=== PATIENT | female | born 1935 | race Caucasian/White ===

== ENCOUNTER 2016-09-20 22:17 | Emergency (ER) | payer MEDICARE, OTHER ==
[2016-09-20 22:29] VITALS: TEMP 97.4
[2016-09-20] MEDS ORDERED: SODIUM CHLORIDE 0.9% 1,000 ML IV STA ×2 (23:01)
[2016-09-20 23:22] LABS: Basophils % (A) 0 %; CH 32.9; Eosinophils # (A) 0.1 k/uL (0-0.7); Eosinophils % (A) 1 %; HCT 45.4 % (34.0-46.0); HDW 2.29; HGB 14.8 gm/dL (11.4-16.0); Luc # (Auto) 0.13; Luc % (Auto) 2; Lymphocytes # (A) 0.6 k/uL (1.0-4.8); Lymphocytes % (A) 9 %; MCH 31.7 pg (25.0-35.0); MCHC 32.6 g/dL (31.0-37.0); MCV 97.2 fL (80.0-100.0); Mean Platelet Volume 7.5; Monocytes # (A) 0.4 k/uL (0-1.0); Monocytes % (A) 6 %; Neutrophils # (A) 5.3 k/uL (1.3-7.7); Neutrophils % (A) 82 %; RBC 4.67 m/uL (3.80-5.40); RDW 13.5 % (11.5-15.5); WBC 6.5 k/uL (3.8-10.6)
[2016-09-20 23:38] LABS: ALT 47 U/L (9-52); AST 66 U/L (14-36); Alkaline Phosphatase 87 U/L (38-126); Anion Gap 13 mmol/L; Blood Urea Nitrogen 18 mg/dL (7-17); Calcium 9.2 mg/dL (8.4-10.2); Carbon Dioxide 25 mmol/L (22-30); Chloride 101 mmol/L (98-107); Glucose 137 mg/dL (74-99); Magnesium 1.7 mg/dL (1.6-2.3); Non-African American GFR(MDRD) >60 (>60 ml/min/1.73 sqM); Potassium 4.2 mmol/L (3.5-5.1); Sodium 139 mmol/L (137-145); Total Bilirubin 0.8 mg/dL (0.2-1.3); Total Protein 7.7 g/dL (6.3-8.2)
--- NOTE | 2016-09-20 23:44 | ED ---
Fall HPI - General Chief Complaint: Fall Stated Complaint: fall Time Seen by Provider: 09/20/16 22:58 Source: patient, family, RN notes reviewed Mode of arrival: ambulatory - History of Present Illness Initial Comments: This is a 81-year-old female was brought in for evaluation of fall. She apparently fell 26 and 7 PM tonight could not get up she normally walks with a walker she felt very dizzy after getting up off a couch. She fell onto her back she denies any head or neck pain complains of upper lumbar lower thoracic pain. She denies any fevers chills nausea or sweats focal weakness at this time. No palpitations. MD Complaint: fall - Related Data Home Medications Medication Instructions Recorded Confirmed HYDROcodone/APAP 5-325MG [[place] 1 tab PO Q6HR PRN 09/20/16 09/20/16 5-325] Levothyroxine Sodium [Synthroid] 25 mcg PO DAILY 09/20/16 09/20/16 Allergies Allergy/AdvReac Type Severity Reaction Status Date / Time No Known Allergies Allergy Verified 09/20/16 22:28 Review of Systems ROS Statement: Those systems with pertinent positive or pertinent negative responses have been documented in the HPI. ROS Other: All systems not noted in ROS Statement are negative. Past Medical History Past Medical History: GERD/Reflux, Thyroid Disorder History of Any Multi-Drug Resistant Organisms: None Reported Past Surgical History: Orthopedic Surgery Past Psychological History: No Psychological Hx Reported Smoking Status: Never smoker Past Alcohol Use History: None Reported Past Drug Use History: None Reported General Exam - General Exam Comments Initial Comments: This is a well-developed well-nourished awake alert oriented 3 female she has a Joel Coma Scale of 15 Limitations: no limitations General appearance: alert, in no apparent distress Head exam: Present: atraumatic, normocephalic, normal inspection Eye exam: Present: normal appearance, PERRL, EOMI. Absent: scleral icterus, conjunctival injection, periorbital swelling ENT exam: Present: mucous membranes dry Neck exam: Present: normal inspection. Absent: tenderness, meningismus, lymphadenopathy Respiratory exam: Present: normal lung sounds bilaterally. Absent: respiratory distress, wheezes, rales, rhonchi, stridor Cardiovascular Exam: Present: regular rate, normal rhythm, normal heart sounds. Absent: systolic murmur, diastolic murmur, rubs, gallop, clicks GI/Abdominal exam: Present: soft, normal bowel sounds. Absent: distended, tenderness, guarding, rebound, rigid Extremities exam: Present: normal inspection, full ROM, normal capillary refill. Absent: tenderness, pedal edema, joint swelling, calf tenderness Back exam: Present: normal inspection, tenderness, paraspinal tenderness. Absent: CVA tenderness (R), CVA tenderness (L), vertebral tenderness Neurological exam: Present: alert, oriented X3, CN II-XII intact Psychiatric exam: Present: normal affect, normal mood Skin exam: Present: warm, dry, intact, normal color. Absent: rash Course Vital Signs 09/20/16 22:23 Temperature 97.4 F L Pulse Rate 107 H Respiratory 20 Rate Blood Pressure 121/70 O2 Sat by Pulse 96 Oximetry - Reevaluation(s) Reevaluation #1: 09/21/16 00:38 Patient was feeling better after IV hydration. Medical Decision Making - Medical Decision Making The patient and much improved this time and would like to go home. She will be discharged she is a follow-up with her doctor return when necessary I did recommend she increase oral fluids. - Lab Data Result diagrams: 09/20/16 22:45 09/20/16 22:45 Lab Results 09/20/16 09/20/16 09/20/16 Range/Units 22:45 22:45 22:45 WBC 6.5 (3.8-10.6) k/uL RBC 4.67 (3.80-5.40) m/uL Hgb 14.8 (11.4-16.0) gm/dL Hct 45.4 (34.0-46.0) % MCV 97.2 (80.0-100.0) fL MCH 31.7 (25.0-35.0) pg MCHC 32.6 (31.0-37.0) g/dL RDW 13.5 (11.5-15.5) % Plt Count 186 (150-450) k/uL Neutrophils % 82 % Lymphocytes % 9 % Monocytes % 6 % Eosinophils % 1 % Basophils % 0 % Neutrophils # 5.3 (1.3-7.7) k/uL Lymphocytes # 0.6 L (1.0-4.8) k/uL Monocytes # 0.4 (0-1.0) k/uL Eosinophils # 0.1 (0-0.7) k/uL Basophils # 0.0 (0-0.2) k/uL Sodium 139 (137-145) mmol/L Potassium 4.2 (3.5-5.1) mmol/L Chloride 101 (98-107) mmol/L Carbon Dioxide 25 (22-30) mmol/L Anion Gap 13 mmol/L BUN 18 H (7-17) mg/dL Creatinine 0.64 (0.52-1.04) mg/dL Est GFR (MDRD) Af Amer >60 (>60 ml/min/1.73 sqM) Est GFR (MDRD) Non-Af >60 (>60 ml/min/1.73 sqM) Glucose 137 H (74-99) mg/dL Calcium 9.2 (8.4-10.2) mg/dL Magnesium 1.7 (1.6-2.3) mg/dL Total Bilirubin 0.8 (0.2-1.3) mg/dL AST 66 H (14-36) U/L ALT 47 (9-52) U/L Alkaline Phosphatase 87 (38-126) U/L Total Creatine Kinase 69 (30-135) U/L CK-MB (CK-2) 0.5 (0.0-2.4) ng/mL CK-MB (CK-2) Rel Index 0.7 Troponin I <0.012 (0.000-0.034) ng/mL Total Protein 7.7 (6.3-8.2) g/dL Albumin 4.1 (3.5-5.0) g/dL Urine Color Urine Appearance (Clear) Urine pH (5.0-8.0) Ur Specific [place] (1.001-1.035) Urine Protein (Negative) Urine Glucose (UA) (Negative) Urine Ketones (Negative) Urine Blood (Negative) Urine Nitrate (Negative) Urine Bilirubin (Negative) Urine Urobilinogen (<2.0) mg/dL Ur Leukocyte Esterase (Negative) Urine RBC (0-5) /hpf Urine WBC (0-5) /hpf Ur Squamous Epith Cells (0-4) /hpf Urine Mucus (None) /hpf 09/20/16 Range/Units 23:43 WBC (3.8-10.6) k/uL RBC (3.80-5.40) m/uL Hgb (11.4-16.0) gm/dL Hct (34.0-46.0) % MCV (80.0-100.0) fL MCH (25.0-35.0) pg MCHC (31.0-37.0) g/dL RDW (11.5-15.5) % Plt Count (150-450) k/uL Neutrophils % % Lymphocytes % % Monocytes % % Eosinophils % % Basophils % % Neutrophils # (1.3-7.7) k/uL Lymphocytes # (1.0-4.8) k/uL Monocytes # (0-1.0) k/uL Eosinophils # (0-0.7) k/uL Basophils # (0-0.2) k/uL Sodium (137-145) mmol/L Potassium (3.5-5.1) mmol/L Chloride (98-107) mmol/L Carbon Dioxide (22-30) mmol/L Anion Gap mmol/L BUN (7-17) mg/dL Creatinine (0.52-1.04) mg/dL Est GFR (MDRD) Af Amer (>60 ml/min/1.73 sqM) Est GFR (MDRD) Non-Af (>60 ml/min/1.73 sqM) Glucose (74-99) mg/dL Calcium (8.4-10.2) mg/dL Magnesium (1.6-2.3) mg/dL Total Bilirubin (0.2-1.3) mg/dL AST (14-36) U/L ALT (9-52) U/L Alkaline Phosphatase (38-126) U/L Total Creatine Kinase (30-135) U/L CK-MB (CK-2) (0.0-2.4) ng/mL CK-MB (CK-2) Rel Index Troponin I (0.000-0.034) ng/mL Total Protein (6.3-8.2) g/dL Albumin (3.5-5.0) g/dL Urine Color Yellow Urine Appearance Clear (Clear) Urine pH 5.5 (5.0-8.0) Ur Specific [place] 1.009 (1.001-1.035) Urine Protein Negative (Negative) Urine Glucose (UA) Negative (Negative) Urine Ketones Negative (Negative) Urine Blood Negative (Negative) Urine Nitrate Negative (Negative) Urine Bilirubin Negative (Negative) Urine Urobilinogen <2.0 (<2.0) mg/dL Ur Leukocyte Esterase Large H (Negative) Urine RBC 4 (0-5) /hpf Urine WBC 27 H (0-5) /hpf Ur Squamous Epith Cells 1 (0-4) /hpf Urine Mucus Few H (None) /hpf - EKG Data -: EKG Interpreted by Me (Sinus rhythm with a rate of 97. 01 72 QRS duration 80 daily since QTC of 3) - Radiology Data Radiology results: report reviewed (I did review the x-ray and report no acute findings or is evidence of chronic interstitial changes.), image reviewed Disposition Clinical Impression: Fall, Dehydration, Weakness, Back pain Disposition: HOME SELF-CARE Condition: Good Instructions: Fall Prevention for Older Adults (ED), Dehydration (ED), Back Pain (ED)
[2016-09-20 23:53] LABS: Creatine Kinase 69 U/L (30-135)
[2016-09-21] MEDS ORDERED: ACETAMINOPHEN TAB 325 MG TAB PO STA (00:03)
[2016-09-21 00:05] LABS: Creatine Kinase MB 0.5 ng/mL (0.0-2.4); Troponin I <0.012 ng/mL (0.000-0.034)
--- NOTE | 2016-09-21 00:06 | XR ---
EXAM: XR Chest, 2 Views. CLINICAL HISTORY: Reason: cough TECHNIQUE: Frontal and lateral views of the chest. COMPARISON: 10/04/15. FINDINGS: Patient's rotated. Suspect cardiac and mediastinal silhouette stable allowing for differences in technique. No pneumothorax is seen. Prominent interstitial opacities. May represent chronic interstitial changes. Difficult to exclude some superimposed infiltrate. Correlate clinically. Calcified granulomas. IMPRESSION: Prominent interstitial opacities. May represent chronic interstitial changes. Difficult to exclude some superimposed infiltrate. Correlate clinically.
[2016-09-21 00:12] LABS: Appearance,Urine Clear (Clear); Bilirubin,Urine Negative (Negative); Glucose,Urine (UA) Negative (Negative); Ketones,Urine Negative (Negative); Leukocyte Esterase,Urine Large (Negative); Mucus,Urine Few /hpf; Nitrite,Urine Negative (Negative); PH, Urine 5.5 (5.0-8.0); Particle Count 3534; Protein,Urine Negative (Negative); RBC,Urine 4 /hpf (0-5); Specific Gravity,Urine 1.009 (1.001-1.035); Squamous Epithelial Cell,Urine 1 /hpf (0-4); UA Billing (MACRO vs. MICRO) MICRO; Urobilinogen,Urine <2.0 mg/dL (<2.0); WBC,Urine 27 /hpf (0-5)
[2016-09-21 01:33] VITALS: BP 143/72; PULSE 82; RESP 16
== END 2016-09-21 01:33 | disposition home or self-care (01) ==
LOC: SUPCPDRO 22:17 → EC 22:17
DX: E86.0 Dehydration (principal); M54.6 Pain in thoracic spine; M54.5 Low back pain; E07.9 Disorder of thyroid, unspecified; R91.8 Other nonspecific abnormal finding of lung field; Z79.52 Long term (current) use of systemic steroids; W19.XXXA Unspecified fall, initial encounter; Y92.009 Unspecified place in unspecified non-institutional (private) residence as the place of occurrence of the external cause
CPT/HCPCS: 36415; 71020; 80053; 81001; 82550; 82553; 83735; 84484; 85025; 93005; 96360; 99283

== ENCOUNTER 2017-03-12 20:19 | Emergency (ER) | payer MEDICARE, OTHER ==
[2017-03-12 20:26] VITALS: RESP 16; TEMP 97.9
[2017-03-12] MEDS ORDERED: methylPREDNISolone SOD SUCCI 125 MG/2 ML VIAL IV STA (21:30)
[2017-03-12] MEDS ORDERED: FAMOTIDINE 20 MG/2 ML VIAL IV STA (21:30)
[2017-03-12] MEDS ORDERED: IBUPROFEN 600 MG TAB PO STA (21:32)
--- NOTE | 2017-03-12 21:32 | ED ---
Allergic Reaction HPI - General Chief complaint: Allergic Reaction Stated complaint: Insect Bites Time Seen by Provider: 03/12/17 21:24 Source: patient, EMS Mode of arrival: EMS Limitations: no limitations - History of Present Illness Initial Comments: 81-year-old female patient presents to emergency department today for evaluation after being stung multiple times by bees while gardening. Patient states around 6 PM she was pulling some weeds when she was stung on both of her hands, her right leg, her chest, and her neck. Patient states that the areas are swollen and painful. She denies any throat swelling, shortness of breath, wheezing, tongue swelling, or lip swelling. States she did take some Benadryl at home. Patient states she was stung one time in the past and did have some facial swelling however the stings were to her face. Denies any headache, neck pain, dizziness, weakness, blurred vision, double vision, chest pain, abdominal pain, nausea, vomiting, difficulties with urination or bowel movements. - Related Data Home Medications Medication Instructions Recorded Confirmed Aspirin EC [Ecotrin Low Dose] 81 mg PO HS 03/12/17 03/12/17 Ibuprofen [Advil] 200 mg PO HS PRN 03/12/17 03/12/17 Levothyroxine Sodium [Synthroid] 50 mcg PO DAILY 03/12/17 03/12/17 Omeprazole 20 mg PO HS 03/12/17 03/12/17 diphenhydrAMINE [Benadryl] 50 mg PO HS PRN 03/12/17 03/12/17 Previous Rx's Medication Instructions Recorded predniSONE 50 mg PO DAILY #3 tab 03/12/17 Allergies Allergy/AdvReac Type Severity Reaction Status Date / Time No Known Allergies Allergy Verified 03/12/17 20:39 Review of Systems ROS Statement: Those systems with pertinent positive or pertinent negative responses have been documented in the HPI. ROS Other: All systems not noted in ROS Statement are negative. Past Medical History Past Medical History: GERD/Reflux, Thyroid Disorder History of Any Multi-Drug Resistant Organisms: None Reported Past Surgical History: Orthopedic Surgery Past Psychological History: No Psychological Hx Reported Smoking Status: Never smoker Past Alcohol Use History: None Reported Past Drug Use History: None Reported General Exam Limitations: no limitations General appearance: alert, in no apparent distress Head exam: Present: atraumatic, normocephalic, normal inspection Eye exam: Present: normal appearance, PERRL, EOMI. Absent: scleral icterus, conjunctival injection, periorbital swelling ENT exam: Present: normal exam, normal oropharynx, mucous membranes moist Neck exam: Present: normal inspection, full ROM, other (Small area of erythema and swelling to the left neck, insect sting). Absent: tenderness, meningismus, lymphadenopathy Respiratory exam: Present: normal lung sounds bilaterally. Absent: respiratory distress, wheezes, rales, rhonchi, stridor Cardiovascular Exam: Present: regular rate, normal rhythm, normal heart sounds. Absent: systolic murmur, diastolic murmur, rubs, gallop, clicks GI/Abdominal exam: Present: soft, normal bowel sounds. Absent: distended, tenderness, guarding, rebound, rigid Extremities exam: Present: full ROM, normal capillary refill, other (Dorsal aspect of the bilateral wrists are erythematous and swollen related to insect sting. Right lateral ankle exhibits small area of erythema and swelling related to insect sting.). Absent: normal inspection, tenderness, pedal edema, joint swelling, calf tenderness Back exam: Present: normal inspection Neurological exam: Present: alert, oriented X3, CN II-XII intact Psychiatric exam: Present: normal affect, normal mood Skin exam: Present: warm, dry, intact, normal color, other (Right chest has small area of erythema and swelling related to insect sting.). Absent: rash Course Vital Signs 03/12/17 20:21 Temperature 97.9 F Pulse Rate 78 Respiratory 16 Rate Blood Pressure 141/71 O2 Sat by Pulse 95 Oximetry Medical Decision Making - Medical Decision Making 81-year-old female patient presented to emergency permits after being stung multiple times by bees. This occurred around 1800 and patient did take Benadryl. Patient states that she is only having localized symptoms and denies any trouble breathing. Patient's physical exam did reveal even non-labored respirations, no wheezes. Patient will be given IV Solu-Medrol and Pepcid. Patient feels comfortable being discharged home. She will be given instructions to take Benadryl every 6 hours as needed for symptoms. Patient also given a prescription for prednisone should she continue to have symptoms tomorrow however told her this was optional and only if she needed to take it. Patient was instructed to follow-up with her primary care physician for recheck in 1-2 days. Patient struck her to return here immediately for any new, worsening, or concerning symptoms. Patient verbalizes understanding and agrees with this plan. Disposition Clinical Impression: Stings, insect Disposition: HOME SELF-CARE Condition: Good Instructions: Insect Bite or Sting (ED) Additional Instructions: Cool compresses to the sting sites. Continue taking Benadryl every 6 hours as needed. Take ibuprofen for pain control. Follow up with primary care physician for recheck in 1-2 days. Return immediately for any new, worsening, or concerning symptoms. Prescriptions: predniSONE 50 mg PO DAILY #3 tab Referrals: Bharath Seals MD [Primary Care Provider] - 1-2 days Time of Disposition: 21:31
[2017-03-12 21:47] VITALS: BP 102/67; PULSE 56
== END 2017-03-12 21:46 | disposition home or self-care (01) ==
LOC: EC 20:19
DX: T63.441A Toxic effect of venom of bees, accidental (unintentional), initial encounter (principal); K21.9 Gastro-esophageal reflux disease without esophagitis; E07.9 Disorder of thyroid, unspecified; Z79.82 Long term (current) use of aspirin; Z79.899 Other long term (current) drug therapy; Y93.H2 Activity, gardening and landscaping
CPT/HCPCS: 99283; 96374; 96375; J2930

== ENCOUNTER → 2017-04-14 | Outpatient (CLI) | payer MEDICARE, OTHER | END | disposition home or self-care (01) | LOC: CPPFTMAIN 10:18 | PROVIDERS: ATTEND Otolaryngology | DX: R05 Cough (principal); J44.9 Chronic obstructive pulmonary disease, unspecified | CPT/HCPCS: 94060; 94726; 94729 ==

== ENCOUNTER → 2019-06-23 | Outpatient (CLI) | payer MEDICARE, OTHER ==
[2019-06-23 11:21] LABS: HGB 13.9 gm/dL (11.4-16.0); MCH 33.2 pg (25.0-35.0); MCHC 33.9 g/dL (31.0-37.0); MCV 98.1 fL (80.0-100.0); Mean Platelet Volume 6.6; Platelet Count 195 k/uL (150-450); RBC 4.18 m/uL (3.80-5.40); RDW 12.7 % (11.5-15.5); WBC 7.2 k/uL (3.8-10.6)
[2019-06-23 11:34] LABS: Potassium 4.6 mmol/L (3.5-5.1)
== END | disposition home or self-care (01) ==
LOC: LABPAT 10:25
PROVIDERS: ATTEND Internal Medicine Interventional Cardiology
DX: Z01.812 Encounter for preprocedural laboratory examination (principal); I35.0 Nonrheumatic aortic (valve) stenosis; I20.9 Angina pectoris, unspecified
CPT/HCPCS: 36415; 80051; 82565; 84520; 85027

== ENCOUNTER → 2019-07-05 | Outpatient (CLI) | payer MEDICARE, OTHER ==
[2019-07-05 17:56] LABS: HCT 46.5 % (34.0-46.0); HGB 15.2 gm/dL (11.4-16.0); MCH 32.5 pg (25.0-35.0); MCHC 32.7 g/dL (31.0-37.0); MCV 99.5 fL (80.0-100.0); Mean Platelet Volume 7.7; Platelet Count 214 k/uL (150-450); RBC 4.68 m/uL (3.80-5.40); RDW 12.7 % (11.5-15.5); WBC 10.1 k/uL (3.8-10.6)
[2019-07-05 23:22] LABS: Anion Gap 11.3 mmol/L (4.00-12.00); BUN/Creat Ratio 31.25 Ratio (12.00-20.00); Calcium 9.7 mg/dL (8.7-10.3); Carbon Dioxide 24.7 mmol/L (21.6-31.8); Non-African American GFR(CKD) 68.2 (60.0-200.0); Potassium 3.9 mmol/L (3.5-5.5)
== END | disposition home or self-care (01) ==
LOC: LABWHC1 17:30
PROVIDERS: ATTEND Internal Medicine
DX: Z01.812 Encounter for preprocedural laboratory examination (principal); I25.119 Atherosclerotic heart disease of native coronary artery with unspecified angina pectoris
CPT/HCPCS: 36415; 80048; 85027

== ENCOUNTER 2019-07-14 06:16 | Day surgery (SDC) | payer MEDICARE, OTHER ==
[2019-07-08 14:48] VITALS: BMI 25.9
[2019-07-14] MEDS ORDERED: NITROGLYCERIN SL TABS 0.4 MG TAB SUBLINGUAL PRN ×2 (06:32→08:32)
[2019-07-14] MEDS ORDERED: ASPIRIN 325 MG TAB PO STA (06:32)
[2019-07-14] MEDS ORDERED: ALPRAZolam 0.25 MG TAB PO PRN (06:32)
[2019-07-14] MEDS ORDERED: ATORVASTATIN 80 MG TAB PO STA (06:32)
[2019-07-14] MEDS ORDERED: SODIUM CHLORIDE 0.9% 1,000 ML in EMPTY BAG 1 BAG IV ONE (06:32)
[2019-07-14] MEDS ORDERED: ALPRAZolam 0.5 MG TAB PO PRN (06:32)
[2019-07-14] MEDS ORDERED: MIDAZOLAM 2 MG/2 ML VIAL IV ONE (07:43)
[2019-07-14] MEDS ORDERED: LIDOCAINE 1% INJ 10MG/ML (20 ML MDV) SQ ONE (07:45)
[2019-07-14] MEDS ORDERED: BIVALIRUDIN 250 MG in SODIUM CHLORIDE 0.9% 39.5 ML IV ONE (07:53)
[2019-07-14] MEDS ORDERED: BIVALIRUDIN BOLUS 250 MG/50 ML IV ONE (07:53)
[2019-07-14] MEDS: NITROGLYCERIN 1000MCG/10ML SYRINGE INTRACORON ONE ×3 (08:06→08:14)
[2019-07-14] MEDS ORDERED: TICAGRELOR 90 MG TAB PO ONE (08:09)
[2019-07-14] MEDS ORDERED: IOPAMIDOL-370 100ML BTL INJ ONE (08:14)
[2019-07-14] MEDS ORDERED: IOPAMIDOL-370 50ML BTL INJ ONE (08:17)
[2019-07-14] MEDS ORDERED: HYDROmorphone 1 MG/ML 1 ML SYRINGE IVP ONE (08:20)
[2019-07-14] MEDS ORDERED: ATROPINE SULFATE 0.1 MG/ML 10ML SYRINGE IV PRN (08:32)
[2019-07-14] MEDS ORDERED: MAG HYDROX/AL HYDROX/SIMETH 30 ML CUP PO PRN (08:32)
[2019-07-14] MEDS ORDERED: RX INFO: IV CONTRAST WAS GIVEN 1 EACH MISC MISCELLANE PRN (08:32)
[2019-07-14] MEDS ORDERED: ZOLPIDEM 5 MG TAB PO PRN (08:32)
--- NOTE | 2019-07-14 09:00 | LTR ---
DATE OF SERVICE: 07/14/2019 RE: Neida Romero Dear Dr. Seals; Thank you for the opportunity to participate in the care of Mrs. Neida Romero. I am pleased to report to you that she had an excellent angiographic result. I dilated the mid LAD with excellent result. Her aortic stenosis is mild and she will be now on aspirin 81 mg daily, Brilinta 90 mg b.i.d., Lipitor 80 mg daily, Lopressor 25 mg daily. She will be seen by me in the office on July 22 and then I will turn her over to your care. Thank you for your referral. Please call for questions. With kindest regards. Sincerely yours, MD WHITNEY Early / CEFERINO: [id number] /
--- NOTE | 2019-07-14 09:00 | PTCA ---
PERCUTANEOUSTRANS CORORONARY ANGIOGRAPHY DATE OF SERVICE: 07/14/2019 PROCEDURE: PTCA and stenting of mid LAD lesion, a bifurcation vessel with a drug-eluting stent. PERFORMED BY: Dr. Franco Mtz. CLINICAL INFORMATION: Mrs. Neida Romero is an 83-year-old lady with a history of hypertension, mild aortic stenosis, significant symptoms of angina, who had a cardiac cath on June 30, which revealed a tight 80% mid LAD lesion immediately after diagonal branch almost at the bifurcation. She had a very long left main, small circumflex, and RCA which did not have significant disease. She was advised intervention, brought in for the procedure electively after due discussion regarding risks, benefits, and options. PROCEDURE NOTE: Under local anesthesia and strict aseptic precautions, a 6-Bolivian introducer was placed in the right femoral artery. I used a JL3.5 guide catheter of 6-Bolivian caliber to cannulate the left coronary artery. A run-through wire was kept in the distal LAD and a Whisper wire was kept in the major diagonal branch. I pre-dilated the lesion with an 8 mm 2.5 NC Trek balloon at 12 atmospheres. I then deployed a 12 mm long 2.75 caliber Xience stent at 13 atmospheres. Patient did not have significant chest pain but had mild ST a segment elevation in the anterior leads. Excellent angiographic result was achieved. Diagonal branch was preserved. The wire in the diagonal and the LAD were taken out and final angiogram revealed excellent result without complication. The sheath was then taken out and a Perclose device used to secure hemostasis. Patient tolerated procedure well without complications. She received Angiomax bolus and infusion as per protocol and also received 180 mg of Brilinta. She was sent to the room in stable condition with the understanding she will be discharged tomorrow if she remains stable. Moderate conscious sedation time was 42 minutes. Patient was administered Versed and oxygen saturation, hemodynamics and EKG were monitored closely. MMODL / IJN: [id number] /
[2019-07-14] MEDS: SODIUM CHLORIDE 0.9% 1,000 ML IV SCH (10:48)
[2019-07-14] MEDS: LEVOTHYROXINE 50 MCG TAB PO SCH (10:49)
[2019-07-14] MEDS: METOPROLOL TARTRATE 25 MG TAB PO SCH (10:49)
[2019-07-14] MEDS ORDERED: ASPIRIN 81 MG PO SCH (21:00)
[2019-07-14] MEDS ORDERED: ATORVASTATIN 80 MG TAB PO SCH (21:00)
[2019-07-15 04:32] VITALS: TEMP 97.6
[2019-07-15] MEDS: SODIUM CHLORIDE 0.9% 1,000 ML IV SCH (04:42)
[2019-07-15] MEDS: LEVOTHYROXINE 50 MCG TAB PO SCH (06:33)
[2019-07-15 07:12] LABS: Basophils # (A) 0.1 k/uL (0-0.2); Basophils % (A) 2 %; Eosinophils # (A) 0.4 k/uL (0-0.7); Eosinophils % (A) 6 %; HCT 43.1 % (34.0-46.0); Lymphocytes # (A) 1.3 k/uL (1.0-4.8); Lymphocytes % (A) 22 %; MCHC 32.6 g/dL (31.0-37.0); MCV 98.4 fL (80.0-100.0); Mean Platelet Volume 7.7; Monocytes # (A) 0.5 k/uL (0-1.0); Monocytes % (A) 8 %; Neutrophils # (A) 3.7 k/uL (1.3-7.7); Neutrophils % (A) 60 %; Platelet Count 140 k/uL (150-450); RBC 4.37 m/uL (3.80-5.40); WBC 6.1 k/uL (3.8-10.6)
[2019-07-15 07:22] LABS: African American GFR (CKD) >90 (>60 ml/min/1.73 sqM); Anion Gap 6 mmol/L; Blood Urea Nitrogen 12 mg/dL (7-17); Calcium 8.7 mg/dL (8.4-10.2); Carbon Dioxide 26 mmol/L (22-30); Chloride 105 mmol/L (98-107); Glucose 83 mg/dL (74-99); Non-African American GFR(CKD) 86 (>60 ml/min/1.73 sqM); Potassium 4.3 mmol/L (3.5-5.1); Sodium 137 mmol/L (137-145)
--- NOTE | 2019-07-15 07:51 | DS ---
DISCHARGE SUMMARY DATE OF ADMISSION: 07/14/2019 DATE OF DISCHARGE: 07/15/2019. DIAGNOSIS: Unstable angina, mild to moderate aortic stenosis. PROCEDURES PERFORMED: PTCA and stenting of a bifurcation mid LAD lesion with excellent angiographic result with a drug-eluting stent. Mrs. Romero was brought in electively for PCI of LAD. This procedure was performed yesterday uneventfully with a 12 mm long 2.75 caliber drug-eluting stent with excellent result. Postprocedure course was uneventful. Right groin is clean and dry. Vitals are stable, blood pressure is about 100/60, pulse rate is about 70 per minute. There is no JVD, ejection systolic murmur is audible. Lungs are clear. Abdomen and lower extremity exam is unchanged. Right groin is clean and dry. EKG revealed sinus mechanism, no acute changes. Labs were reviewed and are normal. Discharge instructions regarding activity, diet, medications, and appointments were given. She will be discharged today and I will see her in the office on July 22, 2019. Dual antiplatelet therapy, statins and beta blockers were given. Prescriptions were given. MMODL / IJN: [id number] /
[2019-07-15] MEDS ORDERED: ATORVASTATIN 80 MG TAB PO SCH (08:30)
[2019-07-15] MEDS ORDERED: ASPIRIN 81 MG PO SCH (08:30)
[2019-07-15] MEDS: METOPROLOL TARTRATE 25 MG TAB PO SCH (08:36)
[2019-07-15] MEDS ORDERED: TICAGRELOR 90 MG TAB PO SCH (09:00)
[2019-07-15 09:06] VITALS: BP 91/57; PULSE 79; RESP 20
== END 2019-07-15 10:10 | disposition home or self-care (01) ==
LOC: CATHCVL 06:16 → 3SCARD 08:20 → CATHCVL 07-15 10:10
PROVIDERS: ATTEND Internal Medicine Interventional Cardiology
DX: I25.110 Atherosclerotic heart disease of native coronary artery with unstable angina pectoris (principal); I35.0 Nonrheumatic aortic (valve) stenosis
CPT/HCPCS: 80048; 85025; C9600; C1769 ×4; C1887; C1725; C1894; C1760; C1874; J2250; J2001; J1170; J0583; Q9967 ×2

== ENCOUNTER 2019-07-16 09:21 | Inpatient (IN) | payer MEDICARE, OTHER ==
[2019-07-16] MEDS ORDERED: KETOROLAC 60 MG/2 ML VIAL IVP STA (10:16)
[2019-07-16] MEDS ORDERED: HYDROmorphone 0.5 MG/0.5 ML SYRINGE IVP STA (10:16)
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
[2019-07-16 11:02] LABS: ALT 45 U/L (4-34); AST 59 U/L (14-36); African American GFR (CKD) >90 (>60 ml/min/1.73 sqM); Albumin 3.6 g/dL (3.5-5.0); Alkaline Phosphatase 62 U/L (38-126); Anion Gap 11 mmol/L; Blood Urea Nitrogen 12 mg/dL (7-17); Calcium 9.2 mg/dL (8.4-10.2); Carbon Dioxide 20 mmol/L (22-30); Chloride 103 mmol/L (98-107); Glucose 89 mg/dL (74-99); Non-African American GFR(CKD) 82 (>60 ml/min/1.73 sqM); Potassium 4.8 mmol/L (3.5-5.1); Sodium 134 mmol/L (137-145); Total Bilirubin 2.1 mg/dL (0.2-1.3); Total Protein 6.6 g/dL (6.3-8.2)
--- NOTE | 2019-07-16 11:09 | XR ---
EXAMINATION TYPE: XR knee complete LT DATE OF EXAM: 07/16/2019 CLINICAL HISTORY: Left knee pain. TECHNIQUE: Three views of the left knee are obtained. COMPARISON: Left knee x-ray August 12, 2013 FINDINGS: There is no acute fracture/dislocation evident in left knee. Persistent moderate to severe narrowing patellofemoral compartment with mild spurring. Persistent moderate narrowing medial tibiof emoral compartment with mild spurring. No significant change from prior. Demineralization is present. Some increased density suprapatellar bursa suggests small to moderate size joint effusion may be new from prior study. Posterior vascular calcification is now identified. IMPRESSION: As above.
[2019-07-16 11:38] LABS: Basophils % (A) 0 %; Eosinophils # (A) 0.1 k/uL (0-0.7); Eosinophils % (A) 1 %; HCT 39.7 % (34.0-46.0); HGB 13.8 gm/dL (11.4-16.0); Lymphocytes # (A) 1.2 k/uL (1.0-4.8); Lymphocytes % (A) 11 %; MCHC 34.6 g/dL (31.0-37.0); MCV 95.2 fL (80.0-100.0); Mean Platelet Volume 7.9; Monocytes # (A) 0.9 k/uL (0-1.0); Monocytes % (A) 8 %; Neutrophils # (A) 8.3 k/uL (1.3-7.7); Neutrophils % (A) 77 %; Platelet Count 138 k/uL (150-450); RBC 4.17 m/uL (3.80-5.40); RDW 12.9 % (11.5-15.5); WBC 10.7 k/uL (3.8-10.6)
[2019-07-16] MEDS ORDERED: SODIUM CHLORIDE 0.9% 1,000 ML IV ONE (14:01)
[2019-07-16] MEDS ORDERED: NITROGLYCERIN SL TABS 0.4 MG TAB SUBLINGUAL PRN (15:11)
[2019-07-16] MEDS ORDERED: ACETAMINOPHEN TAB 500 MG TAB PO PRN (15:26)
[2019-07-16 17:25] LABS: C Reactive Protein 49.7 mg/L (<10.0)
[2019-07-16] MEDS: KETOROLAC 30 MG/ML 1 ML VIAL IVP SCH ×2 (17:36→23:31)
[2019-07-16] MEDS: LIDOCAINE 4% CREAM 5 GM TUBE TOPICAL SCH ×2 (17:37→21:58)
[2019-07-16] MEDS: ATORVASTATIN 80 MG TAB PO SCH (21:55)
[2019-07-16] MEDS: TICAGRELOR 90 MG TAB PO SCH (21:56)
[2019-07-16] MEDS: ASPIRIN 81 MG PO SCH (21:56)
[2019-07-17] MEDS: LEVOTHYROXINE 50 MCG TAB PO SCH (05:50)
[2019-07-17] MEDS: KETOROLAC 30 MG/ML 1 ML VIAL IVP SCH ×2 (05:52→12:24)
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
[2019-07-17] MEDS: TICAGRELOR 90 MG TAB PO SCH ×2 (09:40→23:43)
[2019-07-17] MEDS: METOPROLOL TARTRATE 25 MG TAB PO SCH (09:40)
[2019-07-17] MEDS: LIDOCAINE 4% CREAM 5 GM TUBE TOPICAL SCH ×3 (09:40→23:47)
--- NOTE | 2019-07-17 11:21 | P.PN ---
Subjective Progress Note Date: 07/17/19 The patient is a pleasant 83-year-old female with a past medical history of CAD that underwent cardiac catheterization with stent placement on 07/15/19 that presented to [facility] ED on 07/16/19 with complaints of left knee pain. The pain began suddenly and the patient denies any injury or inciting event. Patient noticed worsening pain in the left knee, that she is unable to bear weight. Patient notes that the left knee is actually her "good knee", she sustained injury to the right knee as a child. She spaces seen Dr. Mccollum in the office and received injections into the left knee, most recent was February of this year. Patient was admitted due to her inability to bear weight. She is a dmitted under the care of internal medicine with consults placed to orthopedics for evaluation of her left knee pain. At the time of my exam, the patient states her pain in the left knee has improved compared to yesterday. She has been up with assistance to the bathroom, with minimal pain in the left knee. She states the pain in her knee is mild, and is exacerbated with weightbearing. She localizes the pain to the medial knee. She denies erythema, warmth of the knee. She denies fevers, chi lls, feelings of generalized malaise. She overall feels well today. Vital signs stable. Objective - Vital Signs Vital signs: Vital Signs Temp 98.5 F 07/17/19 07:00 Pulse 76 07/17/19 07:00 Resp 16 07/17/19 07:00 BP 102/57 07/17/19 07:00 Pulse Ox 93 L 07/17/19 07:00 Intake & Output 07/16/19 07/17/19 07/17/19 18:59 06:59 18:59 Intake Total 780 Output Total 500 Balance 280 Weight 79.379 kg Intake: Intake, IV Titration 300 Amount Sodium Chloride 0.9% 1, 300 000 ml @ 75 mls/hr IV . [id number] ONE Rx#:[id number] Oral 480 Output: Urine 500 Other: Voiding Method Bedside Commode Bedside Commode # Voids 1 1 - Exam On examination, the patient is sitting up in the chair in no apparent distress. She is alert and oriented 3. On inspection of the left knee, there is a moderate effusion with no overlying erythema, warmth, or skin discoloration. There is no tenderness to palpation of the medial joint line, anterior knee, lateral joint line. There is no pain with active or passive range of motion of the knee. No pain with passive range of motion of the hip or ankle. There is no pain with valgus or varus stress of the knee. No pain with logrolling. Patient is able to perform a straight leg raise without issue or pain. Motor and sensory function are intact of the left lower extremity. Patient has good range of motion of the ankle. Left lower extremity is warm and well-perfused. Calf is soft and nontender to palpation. - Labs CBC & Chem 7: 07/16/19 11:16 07/16/19 10:40 Labs: Abnormal Lab Results - Last 24 Hours (Table) 07/16/19 07/16/19 07/16/19 Range/Units 11:16 16:44 16:44 WBC 10.7 H (3.8-10.6) k/uL Plt Count 138 L (150-450) k/uL Neutrophils # 8.3 H (1.3-7.7) k/uL ESR 28 H (0-20) mm/hr Creatine Kinase 24 L (30-135) U/L C-Reactive Protein 49.7 H (<10.0) mg/L Assessment and Plan Assessment: Left knee pain with effusion, with underlying osteoarthritis. Plan: - Clinical and x-ray findings were discussed with the patient. We discussed her clinical exam continues to show no sign of infection. Her exam remains consistent with an acute inflammatory response, or a possible spontaneous hemarthrosis. Recommended we continue with symptomatic treatment with ice and/or warm compresses, pain management, and activity as tolerated. Recommended physical therapy and occupational therapy for gait and balance training, and to increase mobilization. - We will consider a left knee aspiration if she is unable to progress secondary to her effusion. - We will continue to follow the patient and make recommendations as needed. Patient discussed with Dr. Odonnell.
--- NOTE | 2019-07-17 11:23 | US ---
EXAMINATION TYPE: US venous doppler duplex LE DATE OF EXAM: 07/17/2019 11:06 AM COMPARISON: NONE CLINICAL HISTORY: pain, swelling. Bilateral leg pain and swelling, patient on blood thinners SIDE PERFORMED: Bilateral TECHNIQUE: The lower extremity deep venous system is examined utilizing real time linear array sonog isadora with graded compression, doppler sonography and color-flow sonography. VESSELS IMAGED: External Iliac Vein (EIV) Common Femoral Vein Deep Femoral Vein Greater Saphenous Vein * Femoral Vein Popliteal Vein Small Saphenous Vein * Proximal Calf Veins (* superficial vessels) Right Leg: Positive for DVT, proximal calf veins extending up to distal popliteal vein Left Leg: Appears negative for DVT IMPRESSION: 1. Exam is positive for right lower extremity DVT popliteal vein into the proximal calf veins.
[2019-07-17] MEDS ORDERED: HEPARIN SOD,PORK IN 0.45% NACL 25,000 UNIT in 0.45% NACL 1 250ML.BAG IV ONE (12:21)
[2019-07-17] MEDS ORDERED: HEPARIN SODIUM,PORCINE 5,000 UNIT/ML 1 ML VIAL IV STA ×2 (12:44→14:44)
[2019-07-17] MEDS ORDERED: HEPARIN SODIUM,PORCINE 5,000 UNIT/ML 1 ML VIAL IV PRN (12:55)
[2019-07-17] MEDS ORDERED: HEPARIN SOD,PORK IN 0.45% NACL 25,000 UNIT in 0.45% NACL 1 250ML.BAG IV SCH (13:00)
[2019-07-17] MEDS: HEPARIN SOD,PORK IN 0.45% NACL 25,000 UNIT in 0.45% NACL 1 250ML.BAG IV SCH (13:40)
[2019-07-17 14:18] LABS: Mean Platelet Volume 7.7; Platelet Count 140 k/uL (150-450)
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
--- NOTE | 2019-07-17 17:00 | P.PN ---
Subjective Progress Note Date: 07/17/19 This is an 83-year-old patient of Dr. Bharath Seals with history of GERD and hypothyroidism CAD, diffuse interstitial pulmonary fibrosis, sarcoid, follows at the [facility], recently had a drug-eluting stent for unstable angina, in mild to moderate aortic stenosis performed by Dr. Laura Mtz on 07/14/2019, she was discharged to home on 07/15/2019,, cast was performed on the right groin and was without any complications. She was placed on a dual antiplatelet regimen, statins, beta blockers, presenting to the emergency room on 07/16/2019, complaining of left knee pain, soreness in the left knee which is progressive, now unable to ambulate, has difficulty in transferring, despite assistance from her sister. She has middle compartment symptoms, significant pain with range of motion, no history of gout, no history of DVT or PE, no new rashes. In the emergency room, x-rays shows slight effusion, unable to bear weight with attempt to be discharged, patient does not feel safe going home, some leukocytosis is noted, underlying myositis cannot be ruled out, cannot rule out pseudogout, his polyarthritis, cannot rule out arthritic involvement from sarcoid, bilirubin is elevated at 2.1, AST elevated at 59, ALT elevated at 45, creatinine at 0.66, no sed rate no uric acid available for review from the ER lab, consult with director of social media marketing, PT OT, continue on statins, check for CPK, will try kEtodolac IV, patient does not have any urinary symptoms, no respiratory events, no cough consult with director of social media marketing, PT OT, and orthopedic surgery 07/17: Patient was seen by orthopedics no new management obtained, for arthrocentesis, medical management is recommended, we've requested for a Doppler which glove turner and former to be positive for DVT in the popliteal region, right side, on fu rther inquiry, patient has had this DVT was last seen by Dr. Drake in February 2019, DVT was present since 2000 right leg. Patient also doesn't have any patellae in the right knee, secondary to old trauma. Patient is not on any anticoagulation chronically for this one, we're requesting Dr. Drake,/Dr. Ambrocio to evaluate the patient regarding the acuity of the DVT, the imaging studies ordered report from venous Doppler does not comment on the acuity of the DVT. In the meantime we'll going to start her on IV heparin, I discussed this new finding with Dr. Laura Mtz cardiology, if this is truly an acute DVT, he wants her to be off brillinta and aspirin, and initiate Plavix while on eliquis. This is not yet up to acted upon as the DVT might be chronic rather than acute, documentation on dvt report is vague and does not specify it. Await recommendation from vascular surgery. Patient currently is in observation status, making discharge planning difficult director of social media marketing case management PT OT is on the case discussed with family members, at bedside including the patient understands discharge planning conditions Review of Systems Constitutional: Reports as per HPI, Denies anorexia, Denies chills, Denies chronic headaches, Denies chronic pain, Denies daytime sleepiness, Denies fatigue, Denies fever, Denies lethargy, Denies malaise, Denies night sweats, Denies poor appetite, Denies sweats, Denies weakness, Denies weight gain, Denies weight loss Ears, nose, mouth and throat: Reports as per HPI Cardiovascular: Reports as per HPI Respiratory: Reports as per HPI Gastrointestinal: Reports as per HPI Genitourinary: Reports as per HPI Menstruation: Reports as per HPI Musculoskeletal: Reports as per HPI, Reports gait dysfunction, Reports limitation of motion, Reports muscle weakness, Reports myalgias Integumentary: Reports as per HPI Neurological: Reports as per HPI, Reports gait dysfunction, Reports weakness Psychiatric: Reports as per HPI, Reports sleep disturbances Endocrine: Reports as per HPI Hematologic/Lymphatic: Reports as per HPI Allergic/Immunologic: Reports as per HPI, Denies allergic rhinitis, Denies anaphylaxis, Denies angioedema, Denies gluten intolerance, Denies persistent infections, Denies seasonal allergies, Denies urticaria, Denies wheezin Objective - Vital Signs Vital signs: Vital Signs Temp 97.9 F 07/17/19 14:20 Pulse 71 07/17/19 14:20 Resp 15 07/17/19 16:00 BP 91/55 07/17/19 14:20 Pulse Ox 95 07/17/19 14:20 Intake & Output 07/16/19 07/17/19 07/17/19 18:59 06:59 18:59 Intake Total 780 320 Output Total 500 Balance 280 320 Weight 79.379 kg 71 kg Intake: Intake, IV Titration 300 Amount Sodium Chloride 0.9% 1, 300 000 ml @ 75 mls/hr IV . [id number] ONE Rx#:[id number] Oral 480 320 Output: Urine 500 Other: Voiding Method Bedside Commode Bedside Commode # Voids 1 1 - Constitutional General appearance: Present: cooperative, obese - EENT Eyes: Present: anicteric sclerae, EOMI, PERRLA, fundus normal, dentition normal - Neck Neck: Present: normal ROM - Respiratory Respiratory: bilateral: CTA, negative: diminished, dullness, rales - Cardiovascular Rhythm: regular Heart sounds: normal: S1, S2 - Gastrointestinal General gastrointestinal: Present: normal bowel sounds, soft - Integumentary Integumentary: Present: decreased turgor, normal - Neurologic Neurologic: Present: CNII-XII intact - Musculoskeletal Musculoskeletal Comment(s): Flexion knee left side on the 50, right side palpable cord, slightly tender calf region Musculoskeletal: Present: strength equal bilaterally - Labs CBC & Chem 7: 07/18/19 06:55 07/16/19 10:40 Labs: Abnormal Lab Results - Last 24 Hours (Table) 07/16/19 07/16/19 07/17/19 Range/Units 16:44 16:44 13:58 Plt Count 140 L (150-450) k/uL ESR 28 H (0-20) mm/hr Creatine Kinase 24 L (30-135) U/L C-Reactive Protein 49.7 H (<10.0) mg/L Assessment and Plan Plan: 1. 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 DVT, up to the right popliteal region, known history of prior DVT from 2000, unknown whether this is a pre-existing with an acute component, were requesting vascular surgery to review the images and provide further recommendations, started on IV heparin, until full evaluation by vascular surgeon. Eliazar Casillas was seen as an outpatient 2. Transaminitis, with total bilirubin that slight elevated, check hepatitis panel, possibly related to statin use, we would discuss with cardiology later if transaminase is over 2.5 times of normal 3. PTCA and stenting of mid LAD lesion, performed 07/14/2019 Recent cardiac stents placed dual anti-antiplatelet agents continue statins metoprolol and L ipitor. brillinta aspirin. Per recommendations from Dr. CRISTHIAN Mtz, if this is truly an acute DVT, he wants her off brillina and aspirin, and initiate Plavix with eliquis. Discussed with Dr. CRISTHIAN Mtz, with verbal conversation 07/17/2019 4. Hyperlipidemia on Lipitor 80 mg daily 5. Hypothyroidism on 50 minute micrograms Synthroid daily check TSH 6. History of sarcoid, and interstitial pulmonary fibrosis, 7. Debility with abnormality of gait, director of social media marketing for possible subacute rehab, anti-inflammatories, PT OT
[2019-07-17 21:46] LABS: D-Dimer 1.38 mg/L FEU (<0.60); Partial Thromboplastin Time 62.6 sec (22.0-30.0)
[2019-07-17] MEDS: ATORVASTATIN 80 MG TAB PO SCH (23:42)
[2019-07-17] MEDS: ASPIRIN 81 MG PO SCH (23:42)
[2019-07-18] MEDS: LEVOTHYROXINE 50 MCG TAB PO SCH (05:58)
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
[2019-07-18] MEDS: LIDOCAINE 4% CREAM 5 GM TUBE TOPICAL SCH ×5 (06:49→23:23)
[2019-07-18] MEDS: METOPROLOL TARTRATE 25 MG TAB PO SCH (07:44)
[2019-07-18] MEDS: TICAGRELOR 90 MG TAB PO SCH ×2 (07:44→19:51)
--- NOTE | 2019-07-18 08:34 | P.PN ---
Subjective Progress Note Date: 07/18/19 Principal diagnosis: Left knee pain and effusion The patient is a pleasant 83-year-old female whose been following for left knee pain and effusion. She is status post heart catheterization with stent placement on 07/14/2019. The patient states this morning that her knee pain has continued to improve but still has some limitations with ambulation. There is also tightness to the knee upon range of motion. A Doppler was performed yesterday that revealed a right DVT. 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 A Heparin drip was started. No new complaints today. Objective - Vital Signs Vital signs: Vital Signs Temp 98.3 F 07/18/19 07:00 Pulse 69 07/18/19 07:00 Resp 17 07/18/19 07:00 BP 95/60 07/18/19 07:00 Pulse Ox 91 L 07/18/19 07:00 Intake & Output 07/17/19 07/18/19 07/18/19 18:59 06:59 18:59 Intake Total 320 154.212 Balance 320 154.212 Weight 71 kg Intake: Intake, IV Titration 154.212 Amount Heparin Sod,Pork in 0.45% 154.212 NaCl 25,000 unit In 0.45 % NaCl 1 250ml.bag @ 12 UNITS/KG/HR 8.52 mls/hr IV .Q24H [facility] Rx#: [id number] Oral 320 Other: Voiding Method Bedside Commode # Voids 1 1 1 # Bowel Movements 1 - Exam The patient is a pleasant 83-year-old female who is in no acute distress. She is alert and oriented 3. Upon exam of the left knee there is a moderate effusion present. No erythema or warmth to the knee. No open wounds are present. No pain to palpation to the medial or lateral joint line. No pain to active or passive range of motion of the knee but range of motion is limited due to swelling and effusion. Flexion to 85 with full extension. Calf is soft and nontender. Good foot and ankle motion is present. Neurological and circulatory status is intact. - Labs CBC & Chem 7: 07/17/19 13:58 07/16/19 10:40 Labs: Abnormal Lab Results - Last 24 Hours (Table) 07/17/19 07/17/19 07/18/19 Range/Units 13:58 21:07 06:55 Plt Count 140 L (150-450) k/uL APTT 62.6 H 82.6 H (22.0-30.0) sec D-Dimer 1.38 H (<0.60) mg/L FEU Assessment and Plan (1) Effusion, left knee Current Visit: Yes Status: Acute Code(s): M25.462 - EFFUSION, LEFT KNEE SNOMED Code(s): 864806731775359 (2) Primary osteoarthritis of left knee Current Visit: Yes Status: Acute Code(s): M17.12 - UNILATERAL PRIMARY OSTEOARTHRITIS, LEFT KNEE SNOMED Code(s): 824691956108092 Plan: The clinical and x-ray findings were discussed with the patient. Continue symptomatic treatment with ice and/or heat, pain control, and progress activities as tolerated. PT and OT are currently ordered. Patient was evaluated by Dr. Landa for inpatient rehab. We will consider left knee aspiration if effusion hinders progress with therapy and ambulation. We recommend discontinuation of Heparin drip as soon as possible to prevent further hemarthrosis in the knee. We will continue to follow the patient and make further recommendations as needed.
[2019-07-18 12:21] LABS: Cyclic Citrull Pep IgG Unit <0.5 U/mL; Cyclic Citrullinated Pep IgG NEGATIVE (NEGATIVE)
--- NOTE | 2019-07-18 12:29 | P.PN ---
Subjective Progress Note Date: 07/18/19 This is an 83-year-old patient of Dr. Bharath Seals with history of GERD and hypothyroidism CAD, diffuse interstitial pulmonary fibrosis, sarcoid, follows at the [facility] pulmonary clinic, recently had a drug-eluting stent for unstable angina, in mild to moderate aortic stenosis performed by Dr. Laura Mtz on 07/14/2019, she was discharged to home on 07/15/2019,, cast was performed on the right groin and was without any complications. She was placed on a dual antiplatelet regimen, statins, beta blockers, presenting to the emergency room on 07/16/2019, complaining of left knee pain and inability to ambulate, has difficulty in transferring, despite assistance from her sister. In the emergency room, x-rays shows slight effusion, unable to bear weight with attempt to be discharged, patient does not feel safe going home 07/17: Patient was found to have DVT in the popliteal region, right side, on further inquiry, patient has had this DVT was last seen by Dr. Drake in February 2019, DVT was present since 2000 right leg. Patient also doesn't have any patellae in the right knee, secondary to old trauma. Patient is not on any anticoagulation chronically for this one, we're requesting Dr. Drake,/Dr. Díaz to evaluate the patient regarding the acuity of the DVT, the imaging studies ordered report from venous Doppler does not comment on the acuity of the DVT. In the meantime we'll going to start her on IV heparin, Await recommendation from vascular surgery. 07/18 patient evaluated at bedside. She is feeling better than yesterday. Is able to ambulate with some assistance. She is interested in home with homecare. Patient has not been seen by vascular surgery and recommendations based on acute on chronic DVT are pending. We will continue IV heparin until further information from vascular surgery. Orthopedic plan to drain the right knee Review of systems Constitutional: Denies chills, Denies fever, Denies lethargy, Denies malaise, Denies poor appetite, Denies weakness, Denies weight loss Eyes: denies decreased vision, denies diplopia, denies discharge, denies pain Ears: deny: decreased hearing Ears, nose, mouth and throat: Denies dental pain, Denies headache, Denies nasal discharge, Denies nose pain Cardiovascular: Denies chest pain, Denies decreased exercise tolerance, Denies edema, Denies high blood pressure, Denies irregular heart beat, Denies palpitations, Denies paroxysmal nocturnal dyspnea, Denies rapid heart beat, Denies shortness of breath Respiratory: Denies congestion, Denies cough, Denies cough with sputum, Denies dyspnea, Denies home oxygen, Denies wheezing Gastrointestinal: Denies abdominal pain, Denies change in bowel habits, Denies coffee ground emesis, Denies early satiety, Denies excessive gas, Denies heartburn, Denies hematemesis, Denies hematochezia, Denies loss of appetite, Denies nausea, Denies vomiting Genitourinary: Denies dysuria, Denies flank pain, Denies kidney stones, Denies menorrhagia, Denies urgency, Denies urinary frequency Musculoskeletal: Endorses gait dysfunction, endorses limitation of motion, Denie s morning stiffness, Denies muscle cramps endorses pain in the right knee on walking Integumentary: Denies rash, Denies wounds, Denies brittle nails, Denies change in hair/nails, Denies darkening of skin Neurological: Denies balance difficulties, Denies change in speech, Denies double vision, Denies gait dysfunction, Denies loss of vision, Denies motor disturbance, Denies numbness, Denies paralysis, Denies paresthesias, Denies seizures Psychiatric: Denies anxiety, Denies depression Endocrine: Denies excessive sweating, Denies excessive thirst, Denies high blood sugars, Denies palpitations Hematologic/Lymphatic: Denies easy bruising, Denies lymphadenopathy Objective - Vital Signs Vital signs: Vital Signs Temp 98.3 F 07/18/19 07:00 Pulse 69 07/18/19 07:00 Resp 17 07/18/19 07:00 BP 95/60 07/18/19 07:00 Pulse Ox 91 L 07/18/19 07:00 Intake & Output 07/17/19 07/18/19 07/18/19 18:59 06:59 18:59 Intake Total 320 154.212 Balance 320 154.212 Weight 71 kg Intake: Intake, IV Titration 154.212 Amount Heparin Sod,Pork in 0.45% 154.212 NaCl 25,000 unit In 0.45 % NaCl 1 250ml.bag @ 12 UNITS/KG/HR 8.52 mls/hr IV .Q24H [facility] Rx#: [id number] Oral 320 Other: Voiding Method Bedside Commode # Voids 1 1 1 # Bowel Movements 1 - Exam - Constitutional General appearance: cooperative, no acute distress, obese - EENT Eyes: anicteric sclerae, PERRLA, normal appearance ENT: hearing grossly normal - Neck Neck: no lymphadenopathy, normal ROM, no other, no rigidity, no stridor, no thyromegaly - Respiratory Respiratory: bilateral: CTA, negative: diminished, dullness, rales, rhonchi - Cardiovascular Rhythm: regular Heart sounds: normal: S1, S2 Abnormal Heart Sounds:2/6 systolic murmur, no diastolic murmur, no rub, - Gastrointestinal General gastrointestinal: normal bowel sounds, soft nontender - Integumentary Integumentary: no rash - Neurologic Neurologic: CNII-XII intact - Musculoskeletal Musculoskeletal: Chronic scar on the right knee with effusion noted, left knee without any swelling strength equal bilaterally no overlying swelling noted - Psychiatric Psychiatric: A&O x's 3, appropriate affect - Labs CBC & Chem 7: 07/17/19 13:58 07/16/19 10:40 Labs: Abnormal Lab Results - Last 24 Hours (Table) 07/17/19 07/17/19 07/18/19 Range/Units 13:58 21:07 06:55 Plt Count 140 L (150-450) k/uL APTT 62.6 H 82.6 H (22.0-30.0) sec D-Dimer 1.38 H (<0.60) mg/L FEU Assessment and Plan Plan: 1. Poly-arthritis, bilateral knee with left knee effusion, difficulty in ambulating, tramadol for pain control, along with Tylenol, need to rule out rhabdo myelitis as patient is on statins, possible drainage of fluidtomorrow to help with OT and PT tomorrow 2. DVT, up to the right popliteal region, known history of prior DVT from 2000, unknown whether this is a pre-existing with an acute component, were requesting vascular surgery to review the images and provide further recommendations, started on IV heparin, until full evaluation by vascular surgeon. Sees was seen as an outpatient 2. Transaminitis, with total bilirubin that slight elevated, check hepatitis panel, possibly related to statin use, we would discuss with cardiology later if transaminase is over 2.5 times of normal 3. PTCA and stenting of mid LAD lesion, performed 07/14/2019 Recent cardiac stents placed dual anti-antiplatelet agents continue statins metoprolol and Lipitor. brillinta aspirin. Per recommendations from Dr. CRISTHIAN Mtz, if this is truly an acute DVT, he wants her off brillinta and aspirin, and initiate Plavix with eliquis. Discussed with Dr. CRISTHIAN Mtz, with verbal conversation 07/17/2019 4. Hyperlipidemia on Lipitor 80 mg daily 5. Hypothyroidism on 50 minute micrograms Synthroid daily check TSH 6. History of sarcoid, and interstitial pulmonary fibrosis, 7. 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 patient would like homecare
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
[2019-07-18] MEDS: HEPARIN SOD,PORK IN 0.45% NACL 25,000 UNIT in 0.45% NACL 1 250ML.BAG IV SCH (14:16)
[2019-07-18 19:36] LABS: Basophils % (A) 0 %; Eosinophils # (A) 0.3 k/uL (0-0.7); Eosinophils % (A) 4 %; HCT 40.3 % (34.0-46.0); HGB 13.1 gm/dL (11.4-16.0); Lymphocytes # (A) 0.9 k/uL (1.0-4.8); Lymphocytes % (A) 12 %; MCH 33.1 pg (25.0-35.0); MCHC 32.5 g/dL (31.0-37.0); Macrocytosis Slight; Monocytes # (A) 0.7 k/uL (0-1.0); Monocytes % (A) 9 %; Neutrophils % (A) 72 %; Platelet Count 140 k/uL (150-450); RBC 3.96 m/uL (3.80-5.40); RDW 13.1 % (11.5-15.5)
[2019-07-18 19:41] LABS: MCV 101.9 fL (80.0-100.0)
[2019-07-18] MEDS ORDERED: LOPERAMIDE 2 MG CAP PO STA (19:45)
[2019-07-18] MEDS: ASPIRIN 81 MG PO SCH (19:50)
[2019-07-18] MEDS: ATORVASTATIN 80 MG TAB PO SCH (19:51)
[2019-07-19] MEDS: LEVOTHYROXINE 50 MCG TAB PO SCH (04:42)
[2019-07-19 07:23] VITALS: BP 111/59; PULSE 74; RESP 16; TEMP 98.2
[2019-07-19] MEDS: LIDOCAINE 4% CREAM 5 GM TUBE TOPICAL SCH (08:12)
[2019-07-19] MEDS: METOPROLOL TARTRATE 25 MG TAB PO SCH (08:12)
[2019-07-19] MEDS: TICAGRELOR 90 MG TAB PO SCH (08:12)
--- NOTE | 2019-07-19 11:46 | P.PN ---
Subjective Progress Note Date: 07/19/19 The patient states that the left leg is doing quite well. She feels that the knee pain has improved substantially. She was able to ambulate 30 feet with therapy. She states that she is not concerned about the right DVT and says that it is chronic and not bothering her. Objective - Vital Signs Vital signs: Vital Signs Temp 98.2 F 07/19/19 07:00 Pulse 74 07/19/19 07:00 Resp 16 07/19/19 07:00 BP 111/59 07/19/19 07:00 Pulse Ox 94 L 07/19/19 07:00 Intake & Output 07/18/19 07/19/19 07/19/19 18:59 06:59 18:59 Intake Total 154.212 200 Balance 154.212 200 Intake: Intake, IV Titration 154.212 Amount Heparin Sod,Pork in 0.45% 154.212 NaCl 25,000 unit In 0.45 % NaCl 1 250ml.bag @ 12 UNITS/KG/HR 8.52 mls/hr IV .Q24H [facility] Rx#: [id number] Oral 200 Other: Voiding Method Bedside Commode # Voids 1 1 # Bowel Movements 1 3 - Exam Left knee: No ecchymosis or tenderness to palpation. She is able to actively straight leg raise and hold this against resistance. No pain with mid range active or passive motion. Small residual effusion. - Labs CBC & Chem 7: 07/18/19 06:55 07/16/19 10:40 Labs: Abnormal Lab Results - Last 24 Hours (Table) 07/18/19 Range/Units 06:55 MCV 101.9 H D (80.0-100.0) fL Plt Count 140 L (150-450) k/uL Lymphocytes # 0.9 L (1.0-4.8) k/uL Assessment and Plan Assessment: Impression: Left knee effusion with underlying osteoarthritis Right leg DVT - likely chronic Plan: Clinically, the left knee has improved substantially. I would not recommend aspiration at this time. Continue PT/OT and symptomatically treatment. We will sign off at this time. The patient may follow-up outpatient with Dr. Mccollum if the knee begins bothering her again.
--- NOTE | 2019-07-19 12:34 | P.PN ---
Subjective Progress Note Date: 07/19/19 Patient seen and evaluated sitting up in bed. Patient states pain and bilateral lower extremities has improved. Patient is being followed by orthopedics. Objective - Vital Signs Vital signs: Vital Signs Temp 98.2 F 07/19/19 07:00 Pulse 74 07/19/19 07:00 Resp 16 07/19/19 07:00 BP 111/59 07/19/19 07:00 Pulse Ox 94 L 07/19/19 07:00 Intake & Output 07/18/19 07/19/19 07/19/19 18:59 06:59 18:59 Intake Total 154.212 200 Balance 154.212 200 Intake: Intake, IV Titration 154.212 Amount Heparin Sod,Pork in 0.45% 154.212 NaCl 25,000 unit In 0.45 % NaCl 1 250ml.bag @ 12 UNITS/KG/HR 8.52 mls/hr IV .Q24H [facility] Rx#: [id number] Oral 200 Other: Voiding Method Bedside Commode # Voids 1 1 # Bowel Movements 1 3 - Exam General appearance: The patient is alert, oriented, in no acute distress. HET: Head is normocephalic and atraumatic. Heart: S1 S2. Regular rate and rhythm. Lungs: No crackles or wheezes are heard. Extremities: Normal skin color and turgor. No cyanosis, rash, ulceration, clubbing, or edema. Radial and pedal pulses are 2/4 bilaterally. Neurological: No focal deficits. - Labs CBC & Chem 7: 07/18/19 06:55 07/16/19 10:40 Labs: Abnormal Lab Results - Last 24 Hours (Table) 07/18/19 Range/Units 06:55 MCV 101.9 H D (80.0-100.0) fL Plt Count 140 L (150-450) k/uL Lymphocytes # 0.9 L (1.0-4.8) k/uL Assessment and Plan Assessment: DVT of the right lower extremity, chronic Plan: Patient seen and evaluated with Dr. Swanson. Discussed with patient she may continue to follow-up with Dr. Drake for right lower extremity chronic DVT in outpatient basis, there is no indication for any vascular surgical intervention. At this time we will sign off on this patient, please do not hesitate to contact us for any further concerns. The above dictated assessment and findings were discussed with Dr. Swanson. The impression and plan of care have been directed as dictated.
--- NOTE | 2019-07-19 16:34 | P.DS ---
Providers Date of admission: 07/18/19 08:48 Attending physician: Jimena Richardson Consults: 07/16/19 14:01 Consult Physician Urgent Consulting Provider: Timbo Oodnnell Consult Reason/Comments: Intractable left knee pain Do you want consulting provider notified?: Yes Consult Physician Urgent Consulting Provider: Denver Landa Consult Reason/Comments: Intractable left knee Do you want consulting provider notified?: Yes 07/17/19 13:19 Consult Physician Routine Consulting Provider: Bon Ambrocio Consult Reason/Comments: acute vs chronic dvt Do you want consulting provider notified?: Yes Primary care physician: [facility] Course: This is an 83-year-old patient of Dr. Bharath Seals with history of GERD and hypothyroidism CAD, diffuse interstitial pulmonary fibrosis, sarcoid, follows at the [facility] pulmonary clinic, recently had a drug-eluting stent for unstable angina, in mild to moderate aortic stenosis performed by Dr. Laura Mtz on 07/14/2019, she was discharged to home on 07/15/2019,, cast was performed on the right groin and was without any complications. She was placed on a dual antiplatelet regimen, statins, beta blockers, presenting to the emergency room on 07/16/2019, complaining of left knee pain and inability to ambulate, has difficulty in transferring, despite assistance from her sister. In the emergency room, x-rays shows slight effusion, unable to bear weight with attempt to be discharged, patient does not feel safe going home 07/17: Patient was found to have DVT in the popliteal region, right side, on further inquiry, patient has had this DVT was last seen by Dr. Drake in February 2019, DVT was present since 2000 right leg. Patient also doesn't have any patellae in the right knee, secondary to old trauma. Patient is not on any anticoagulation chronically for this one, we're requesting Dr. Drake,/Dr. Díaz to evaluate the patient regarding the acuity of the DVT, the imaging studies ordered report from venous Doppler does not comment on the acuity of the DVT. In the meantime we'll going to start her on IV heparin, Await recommendation from vascular surgery. 07/18 patient evaluated at bedside. She is feeling better than yesterday. Is able to ambulate with some assistance. She is interested in home with homecare. Patient has not been seen by vascular surgery and recommendations based on acute on chronic DVT are pending. We will continue IV heparin until further information from vascular surgery. Orthopedic plan to drain the right knee 07/19 patient evaluated at bedside. She is able to ambulate with the help of walker without any pain. Necessary surgery evaluated the venous Doppler and concluded that patient's blood clot is chronic. No aspiration of the joint line and. As patient is of minimal pain on ambulation will discharge the patient. Discharge diagnoses 1. Poly-arthritis, bilateral knee with left knee effusion, no intervention done 2. Chronic DVT, up to the right popliteal region, known history of prior DVT from 2000 2. Transaminitis, stable to be followed as outpatient 3. PTCA and stenting of mid LAD lesion, performed 07/14/2019 Dr. CRISTHIAN Mtz 4. Hyperlipidemia 5. Hypothyroidism 6. History of sarcoid, and interstitial pulmonary fibrosis, 7. Debility with abnormality of gait Disposition home with home care Patient Condition at Discharge: Good Plan - Discharge Summary Discharge Rx Participant: No New Discharge Prescriptions: Continue Aspirin EC [Ecotrin Low Dose] 81 mg PO HS Metoprolol Tartrate 25 mg PO DAILY Levothyroxine Sodium [Synthroid] 50 mcg PO DAILY Ticagrelor [Brilinta] 90 mg PO BID #60 tab Atorvastatin [Lipitor] 80 mg PO HS #30 tab Nitroglycerin Sl Tabs [Nitrostat] 0.4 mg SUBLINGUAL Q5M PRN #100 tab PRN Reason: Chest Pain Discharge Medication List Aspirin EC [Ecotrin Low Dose] 81 mg PO HS 03/12/17 [History] Levothyroxine Sodium [Synthroid] 50 mcg PO DAILY 07/08/19 [History] Metoprolol Tartrate 25 mg PO DAILY 07/08/19 [History] Atorvastatin [Lipitor] 80 mg PO HS #30 tab 07/15/19 [Rx] Nitroglycerin Sl Tabs [Nitrostat] 0.4 mg SUBLINGUAL Q5M PRN #100 tab 07/15/19 [Rx] Ticagrelor [Brilinta] 90 mg PO BID #60 tab 07/15/19 [Rx] Follow up Appointment(s)/Referral(s): [facility], [NON-STAFF] - As Needed Bharath Seals MD [Primary Care Provider] - 1-2 days Discharge Disposition: HOME WITH HOME HEALTH SERVICES
== END 2019-07-19 14:44 | disposition home health service (06) | DRG 554 ==
LOC: EC 09:21 → 4SSUR 14:01 → OBSVTOIN 07-18 08:48
PROVIDERS: ADMIT Family Medicine; ATTEND Family Medicine
DX: M17.0 Bilateral primary osteoarthritis of knee (principal); J44.1 Chronic obstructive pulmonary disease with (acute) exacerbation; I82.531 Chronic embolism and thrombosis of right popliteal vein; J84.10 Pulmonary fibrosis, unspecified; D86.9 Sarcoidosis, unspecified; E03.9 Hypothyroidism, unspecified; R74.0 Nonspecific elevation of levels of transaminase and lactic acid dehydrogenase [LDH]; E78.5 Hyperlipidemia, unspecified; I25.10 Atherosclerotic heart disease of native coronary artery without angina pectoris; I35.0 Nonrheumatic aortic (valve) stenosis; K21.9 Gastro-esophageal reflux disease without esophagitis; M25.462 Effusion, left knee; R26.9 Unspecified abnormalities of gait and mobility; Z79.890 Hormone replacement therapy; Z79.899 Other long term (current) drug therapy; Z79.01 Long term (current) use of anticoagulants; Z79.82 Long term (current) use of aspirin; Z95.5 Presence of coronary angioplasty implant and graft
CPT/HCPCS: 36415; 80053; 82550; 85025; 85049; 85379; 85652; 85730; 86038; 86140; 86200; 86618; 93970; 96374; 96375; 99285

== ENCOUNTER 2019-07-20 09:32 | Inpatient (IN) | payer MEDICARE, OTHER ==
[2019-07-20] MEDS ORDERED: SODIUM CHLORIDE 0.9% 500 ML 500 ML IV STA (10:04)
[2019-07-20] MEDS ORDERED: IBUPROFEN 600 MG TAB PO STA (10:04)
[2019-07-20] MEDS ORDERED: ACETAMINOPHEN TAB 500 MG TAB PO STA (10:04)
[2019-07-20] MEDS ORDERED: SODIUM CHLORIDE 0.9% 1,000 ML IV STA ×2 (10:04)
[2019-07-20] MEDS ORDERED: IPRATROPIUM-ALBUTEROL 3 ML NEB INHALATION STA (10:07)
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
[2019-07-20 10:50] LABS: Basophils % (A) 0 %; Eosinophils # (A) 0.1 k/uL (0-0.7); Eosinophils % (A) 1 %; HCT 44.1 % (34.0-46.0); Lymphocytes # (A) 0.7 k/uL (1.0-4.8); Lymphocytes % (A) 6 %; MCH 32.5 pg (25.0-35.0); MCHC 34.1 g/dL (31.0-37.0); Mean Platelet Volume 8.1; Monocytes # (A) 0.6 k/uL (0-1.0); Monocytes % (A) 5 %; Neutrophils # (A) 10.3 k/uL (1.3-7.7); Neutrophils % (A) 87 %; Platelet Count 164 k/uL (150-450); RBC 4.64 m/uL (3.80-5.40); RDW 12.8 % (11.5-15.5); WBC 11.9 k/uL (3.8-10.6)
[2019-07-20 10:50] LABS: Appearance,Urine Cloudy (Clear); Bacteria,Urine Rare /hpf; Bilirubin,Urine Negative (Negative); Blood,Urine Negative (Negative); Color,Urine Yellow; Glucose,Urine (UA) Negative (Negative); Ketones,Urine Trace (Negative); Leukocyte Esterase,Urine Negative (Negative); Mucus,Urine Few /hpf; Nitrite,Urine Negative (Negative); PH, Urine 5.5 (5.0-8.0); Protein,Urine Trace (Negative); Squamous Epithelial Cell,Urine 2 /hpf (0-4); Urobilinogen,Urine <2.0 mg/dL (<2.0); WBC,Urine 14 /hpf (0-5)
[2019-07-20 10:55] LABS: INR 1.1 (<1.2); MCV 95.2 fL (80.0-100.0); Partial Thromboplastin Time 25.4 sec (22.0-30.0); Prothrombin Time 11.7 sec (9.0-12.0)
--- NOTE | 2019-07-20 11:05 | XR ---
EXAMINATION TYPE: XR chest 2V DATE OF EXAM: 07/20/2019 COMPARISON: 07/20/2017 HISTORY: Chest pain after fall TECHNIQUE: Frontal and lateral views of the chest are obtained. FINDINGS: Interstitial prominence is become more confluent in the left lung base. Fibrotic changes a re seen throughout. There is also increasing confluence in the right upper lung. Diffuse osseous albert neralization is seen. Cardiomediastinal silhouette is within normal limits. No sizable pneumothorax o r pleural effusion. IMPRESSION: In addition to the extensive pulmonary fibrosis there is increasing confluence in the ri ght upper lobe and left lung base. Superimposed atelectasis or pneumonia are possible versus progress ion of fibrosis.
[2019-07-20 11:06] LABS: ALT 96 U/L (4-34); AST 128 U/L (14-36); African American GFR (CKD) >90 (>60 ml/min/1.73 sqM); Alkaline Phosphatase 111 U/L (38-126); Anion Gap 14 mmol/L; Blood Urea Nitrogen 8 mg/dL (7-17); Calcium 9.7 mg/dL (8.4-10.2); Carbon Dioxide 22 mmol/L (22-30); Chloride 100 mmol/L (98-107); Creatine Kinase 96 U/L (30-135); Glucose 89 mg/dL (74-99); Magnesium 1.7 mg/dL (1.6-2.3); Non-African American GFR(CKD) 81 (>60 ml/min/1.73 sqM); Phosphorus 3.3 mg/dL (2.5-4.5); Potassium 3.9 mmol/L (3.5-5.1); Sodium 136 mmol/L (137-145); Total Bilirubin 2.3 mg/dL (0.2-1.3); Total Protein 7.6 g/dL (6.3-8.2)
--- NOTE | 2019-07-20 11:06 | XR ---
EXAMINATION TYPE: XR pelvis AP view DATE OF EXAM: 07/20/2019 COMPARISON: None HISTORY: Fall, pain TECHNIQUE: AP pelvis FINDINGS: No acute fractures are evident. Sacroiliac joint on the left appears patent. Right sacroili ac joint may has some fusion. Femoral heads articulate with the acetabulum. Symphysis pubis appears n ormal. IMPRESSION: 1. No acute osseous abnormality. 2. Suspected fusion of the right sacroiliac joint. This could be projectional. Correlate for ankylosi ng spondylitis.
[2019-07-20] MEDS ORDERED: LEVOFLOXACIN 750MG-D5W PMX 750 MG in DEXTROSE/WATER 1 150ML.BAG IVPB STA (11:34)
[2019-07-20] MEDS ORDERED: PIPERACILLIN-TAZOBACTAM 3.375 GM in SODIUM CHLORIDE 0.9% 100 ML IVPB STA (11:34)
[2019-07-20] MEDS ORDERED: PNEUMONIA PROTOCOL UTILIZED 1 EACH MISC PO PRN (11:34)
--- NOTE | 2019-07-20 11:34 | CT ---
EXAMINATION TYPE: CT brain richard rodrigez DATE OF EXAM: 07/20/2019 COMPARISON: 02/28/2012 HISTORY: Fall today. Weakness and congestion. Head and neck pain. CT DLP: 1321.1 mGycm. Automated Exposure Control for Dose Reduction was Utilized. TECHNIQUE: CT scan of the head and cervical spine are performed without contrast. FINDINGS: There is no acute intracranial hemorrhage, mass effect, or midline shift identified. 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 This has progressed from the prior of T11-12. Confluent areas of hypoattenuation in the periventricular and subcortical white matter mos t commonly on the basis of chronic microangiopathy. No suspicious extra-axial fluid collection. The v entricles and sulci are symmetrically prominent compatible with age-related volume loss. Cerebellar t onsils are incidentally noted to be low-lying without ectopia. The globes are intact and the visualiz ed sinuses are clear. Extensive atherosclerosis of the intracranial vasculature. Cervical spine is visualized in its entirety from C1 through upper thoracic levels and demonstrates s atisfactory alignment without evidence of acute fracture or dislocation. Moderate multilevel degenera tive disc disease demonstrated as multilevel posterior disc osteophyte complexes, intervertebral disc space narrowing, facet arthropathy, uncovertebral hypertrophy and anterior osteophytes. Atherosclero sis of the carotid arteries incidentally noted. Prevertebral soft tissue appears within normal limits . The C1-C2 articulation is unremarkable. Fibrotic changes of the lungs and the visualized apices. IMPRESSION: 1. There is no acute fracture or dislocation evident in the cervical spine. Moderate degenerative dis c disease. 2. No acute intracranial hemorrhage, mass effect, or midline shift is seen. 3. Senescent changes and old deep white matter infarct in the left parietal-occipital region.
[2019-07-20] MEDS ORDERED: ALBUTEROL NEBULIZED 2.5 MG/3 ML INHALATION STA (11:38)
[2019-07-20] MEDS ORDERED: ALBUTEROL NEBULIZED 1.25 MG/3 ML INHALATION PRN (12:00)
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
[2019-07-20] MEDS: SODIUM CHLORIDE 0.9% 1,000 ML IV SCH ×2 (12:33→21:45)
--- NOTE | 2019-07-20 13:00 | CT ---
EXAMINATION TYPE: CT angio chest DATE OF EXAM: 07/20/2019 COMPARISON: 07/20/2019 chest x-ray and CT dated 07/20/2017 HISTORY: Congestion and cough. Hypoxia. CT DLP: 316.6 mGycm. Automated Exposure Control for Dose Reduction was Utilized. CONTRAST: CTA scan of the thorax is performed with IV Contrast, patient injected with 100 mL of Isovue 300, pul monary embolism protocol. MIP Images are created on CT scanner and reviewed. FINDINGS: LUNGS: The degree of pulmonary fibrosis has markedly advanced in the interim with honeycombing at the lung bases. There are additionally geographic groundglass opacities throughout both lungs most confl uent in the posterior right middle lobe and lung bases. Benign granulomas are seen in the lungs with emphysematous changes and bulla as well as numerous blebs. MEDIASTINUM: There is satisfactory enhancement of the pulmonary artery and its branches, there is no CT evidence for pulmonary embolism. There are numerous prominent mediastinal lymph nodes measuring up to 1.0 cm in short axis. Conglomeration of lymph nodes in the right perihilar region is also seen wi th enlarged right infrahilar lymph node measuring 1.6 cm in short axis. At least moderate coronary ar ninfa calcifications are evident. Heart is mildly enlarged. Very trace pericardial effusion. OTHER: Punctate foci of questionable enhancement in the upper-outer quadrant of the left breast. Old compression deformity of T12 is unchanged from 2018. IMPRESSION: 1. No evidence of pulmonary embolism. 2. Advancement of the severe pulmonary fibrosis with additional multifocal groundglass opacities. The se could be on the basis of pulmonary fibrosis/fibrotic NSIP or acute multifocal pneumonia. 3. Punctate foci of questionable enhancement in the left breast. Mammogram is recommended on a noneme rgent basis if not recently performed. No recent priors at this institution.
[2019-07-20] MEDS: IPRATROPIUM-ALBUTEROL 3 ML NEB INHALATION SCH ×3 (15:04→21:22)
[2019-07-20] MEDS ORDERED: NITROGLYCERIN SL TABS 0.4 MG TAB SUBLINGUAL PRN (15:47)
[2019-07-20] MEDS ORDERED: ATORVASTATIN 80 MG TAB PO SCH (21:00)
[2019-07-20] MEDS: ASPIRIN 81 MG PO SCH (21:44)
[2019-07-20] MEDS: TICAGRELOR 90 MG TAB PO SCH (21:44)
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
[2019-07-21] MEDS: PIPERACILLIN-TAZOBACTAM 3.375 GM in SODIUM CHLORIDE 0.9% 100 ML IVPB SCH ×2 (00:07→07:17)
[2019-07-21] MEDS: LEVOTHYROXINE 50 MCG TAB PO SCH (05:55)
[2019-07-21] MEDS: METOPROLOL TARTRATE 25 MG TAB PO SCH (06:27)
[2019-07-21] MEDS: ENOXAPARIN 40 MG/0.4 ML SYRINGE SQ SCH (07:17)
[2019-07-21] MEDS: TICAGRELOR 90 MG TAB PO SCH ×2 (07:17→21:05)
[2019-07-21 08:05] LABS: Basophils % (A) 0 %; Eosinophils # (A) 0.3 k/uL (0-0.7); Eosinophils % (A) 4 %; HCT 34.3 % (34.0-46.0); Lymphocytes # (A) 0.5 k/uL (1.0-4.8); Lymphocytes % (A) 7 %; MCH 32.3 pg (25.0-35.0); MCHC 33.6 g/dL (31.0-37.0); MCV 96.4 fL (80.0-100.0); Mean Platelet Volume 7.7; Monocytes # (A) 0.4 k/uL (0-1.0); Monocytes % (A) 7 %; Neutrophils # (A) 5.1 k/uL (1.3-7.7); Neutrophils % (A) 79 %; Platelet Count 134 k/uL (150-450); RBC 3.56 m/uL (3.80-5.40); RDW 12.8 % (11.5-15.5); WBC 6.4 k/uL (3.8-10.6)
[2019-07-21 08:11] LABS: HGB 11.5 gm/dL (11.4-16.0)
[2019-07-21 08:15] LABS: ALT 108 U/L (4-34); AST 160 U/L (14-36); African American GFR (CKD) >90 (>60 ml/min/1.73 sqM); Albumin 2.5 g/dL (3.5-5.0); Alkaline Phosphatase 80 U/L (38-126); Anion Gap 7 mmol/L; Blood Urea Nitrogen 8 mg/dL (7-17); Calcium 8.1 mg/dL (8.4-10.2); Carbon Dioxide 22 mmol/L (22-30); Chloride 106 mmol/L (98-107); Glucose 90 mg/dL (74-99); Non-African American GFR(CKD) 86 (>60 ml/min/1.73 sqM); Potassium 3.8 mmol/L (3.5-5.1); Sodium 135 mmol/L (137-145); Total Bilirubin 1.5 mg/dL (0.2-1.3); Total Protein 5.2 g/dL (6.3-8.2)
[2019-07-21] MEDS: IPRATROPIUM-ALBUTEROL 3 ML NEB INHALATION SCH ×2 (08:31→12:15)
--- NOTE | 2019-07-21 09:09 | US ---
EXAMINATION TYPE: US abdomen limited DATE OF EXAM: 07/21/2019 COMPARISON: NONE CLINICAL HISTORY: transaminitis . Extremely difficult and limited exam due to overlying bowel gas. Pranay duque unable to take a deep breath in and hold EXAM MEASUREMENTS: Liver Length: 11.7 cm Gallbladder Wall: 0.25 cm CBD: 0.3 cm Right Kidney: 9.7 x 4.5 x 4.7 cm Pancreas: Tail obscured by overlying bowel gas, visualized portions wnl Liver: Extremely limited visualization. Visualized portions appear wnl Gallbladder: wnl as visualized Evidence for sonographic Mccollum's sign: No CBD: wnl as visualized Right Kidney: No hydronephrosis or masses seen as visualized IMPRESSION: 1. No acute process. Coarsened hepatic changes are suggestive of fatty infiltration or hepatitis ana elate clinically.
--- NOTE | 2019-07-21 09:12 | XR ---
EXAMINATION TYPE: XR chest 2V DATE OF EXAM: 07/21/2019 COMPARISON: 07/20/2019 TECHNIQUE: PA and lateral views submitted. HISTORY: Cough FINDINGS: Coarsened interstitium with no pneumothorax. Heart size stable with atherosclerotic change aorta. Mil d prominence of the hilum bilaterally. Subsegmental areas of consolidation noted. IMPRESSION: 1. Correlate for pulmonary fibrosis. Subsegmental areas of atelectasis or pneumonia also noted. 2. Hilar prominence may represent hilar adenopathy.
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
[2019-07-21] MEDS ORDERED: FUROSEMIDE 10 MG/ML 4 ML VIAL IV STA (10:07)
[2019-07-21] MEDS: PANTOPRAZOLE 40 MG TABLET PO SCH (10:38)
[2019-07-21] MEDS ORDERED: LEVOFLOXACIN 750MG-D5W PMX 750 MG in DEXTROSE/WATER 1 150ML.BAG IVPB SCH (13:00)
--- NOTE | 2019-07-21 13:46 | P.PN ---
Subjective Progress Note Date: 07/21/19 This is an 83-year-old patient of Dr. Bharath Seals with history of GERD and hypothyroidism CAD, diffuse interstitial pulmonary fibrosis, sarcoid, follows at the [facility] pulmonary clinic, recently had a drug-eluting stent for unstable angina, in mild to moderate aortic stenosis performed by Dr. Laura Mtz on 07/14/2019, she was discharged to home on 07/15/2019,, cast was performed on the right groin and was without any complications. She was placed on a dual antiplatelet regimen, statins, beta blockers, presenting to the emergency room on 07/16/2019, complaining of left knee pain and inability to ambulate, has difficulty in transferring, despite assistance from her sister. Patient was a dmitted up until 07/19 where she had x-ray of her right joint that suggested slight effusion but since patient was able to mobilize without any difficulty and no intervention was done. During patient's admission patient was found to have a DVT in the right lower extremity in the popliteal region which on consultation with vascular surgery was found to be chronic, no anticoagulation was recommended by Dr. Díaz. IV heparin was discontinued and no anticoagulation and discharge was done as patient is currently on brillanta and aspirin for the stent placed recently. Patient was discharged on 07/19 and came back on 2019 cough, congestion and increased weakness. Apparently family found the patient on ground in the morning where she was sleeping with a blanket on as patient was too weak to stand by herself, EMS was called and patient was found to have hypoxia on vital assessment. Patient is currently saturating at 96% on 5 L with a tachycardia pulse of 101 afebrile. 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 Chest x-ray suggested extensive pulmonary fibrosis with a concern for right upper lobe and left lung base consolidation concerning for possible pneumonia. Patient initiated on levofloxacin and Zosyn by infectious disease. Based on patient's history of DVT in the right leg, CTA is recommended. CTA suggested markedly in the advanced pulmonary fibrosis with honeycombing at the lung bases also noted is geographic groundglass of his reduced throughout both lungs can fluid and in the posterior right middle lobar lung bases concerning for either multi focal pneumonia or nonspecific interstitial pneumonitis.. Pulmonary consulted Infectious disease and cardiology consulted /2: Repeat chest x-ray done this morning reveals correlate for pulmonary fibrosis. Subsegmental areas of atelectasis or pneumonia also noted. Hilar prominence may represent hilar adenopathy. Patient has been seen by cardiology with recommendations for continuing dual antiplatelet therapy. Patient follow- up with Dr. Mtz after discharge. Cardiology is following on an as-needed basis. Abdominal ultrasound showed no acute process. Coarsened hepatic changes are suggestive of fatty infiltration or hepatitis. Repeat lab work reveals white count of 6.4, hemoglobin 11.5, platelet count 134. Creatinine 0.57. Total bilirubin 1.5, AST 160, ALT 108. Pro-calcitonin 0.16. Urine culture has been finalized with skin esequiel, blood culture no growth at 24 hours, sputum culture in progress. Patient has been seen by Dr. Mcgrath with recommendations to continue Zosyn and Levaquin. Consult in place with Dr. Valladares. PT and OT added. Anticipate possible need for subacute rehab. Pulse ox 97% on 4 L nasal cannula, heart rate 53, afebrile, blood pressure 95/56. Review of Systems Constitutional: Denies chills, Denies fever, courses lethargic Eyes: denies decreased vision, denies diplopia, denies discharge, denies pain Ears: deny: decreased hearing Ears, nose, mouth and throat: Denies dental pain, Denies headache, Denies nasal discharge, Denies nose pain Cardiovascular: Denies chest pain, Denies decreased exercise tolerance, Denies edema, Denies high blood pressure, Denies irregular heart beat, Denies palpitations, Denies paroxysmal nocturnal dyspnea, Denies rapid heart beat, Denies shortness of breath Respiratory: Endorses cough and congestion, endorses shortness of breath Gastrointestinal: Denies abdominal pain, Denies change in bowel habits, Denies coffee ground emesis, Denies early satiety, Denies excessive gas, Denies heartburn, Denies hematemesis, Denies hematochezia, Denies loss of appetite, Denies nausea, Denies vomiting Genitourinary: Denies dysuria, Denies flank pain, Denies kidney stones, Denies menorrhagia, Denies urgency, Denies urinary frequency Musculoskeletal: Endorses weakness and inability to move generalized in nature Integumentary: Denies rash, Denies wounds, Denies brittle nails, Denies change in hair/nails, Denies darkening of skin Neurological: Denies balance difficulties, Denies change in speech, Denies double vision, Denies gait dysfunction, Denies loss of vision, Denies motor disturbance, Denies numbness, Denies paralysis, Denies paresthesias, Psychiatric: Denies anxiety, Denies depression Endocrine: Denies excessive sweating, Denies excessive thirst, Denies high blood sugars, Denies palpitations Hematologic/Lymphatic: Denies easy bruising, Denies lymphadenopathy Objective - Vital Signs Vital signs: Vital Signs Temp 98.3 F 07/21/19 06:16 Pulse 80 07/21/19 08:44 Resp 18 07/21/19 08:00 BP 95/56 07/21/19 06:16 Pulse Ox 97 07/21/19 06:16 Intake & Output 07/20/19 07/21/19 07/21/19 18:59 06:59 18:59 Intake Total 600 Balance 600 Weight 72.575 kg Intake: Intake, IV Titration 500 Amount Piperacillin-Tazobactam 3 100 .375 gm In Sodium Chloride 0.9% 100 ml @ 25 mls/hr IVPB Q8HR [facility] Rx# :[id number] Sodium Chloride 0.9% 1, 400 000 ml @ 50 mls/hr IV . Q20H [facility] Rx#:[id number] Oral 100 Other: Voiding Method Bedside Commode Bedside Commode # Voids 1 1 - Exam - Constitutional General appearance: cooperative, no acute distress, obese - EENT Eyes: anicteric sclerae, PERRLA, normal appearance ENT: hearing grossly normal - Neck Neck: no lymphadenopathy, normal ROM, no other, no rigidity, no stridor, no thyromegaly - Respiratory Respiratory: bilateral fine crackles and diminished air entry bilaterally - Cardiovascular Rhythm: regular Heart sounds: normal: S1, S2 Abnormal Heart Sounds: no systolic murmur, no diastolic murmur, no rub, no S3 Gallop, no S4 Gallop, no click, no other - Gastrointestinal General gastrointestinal: normal bowel sounds, soft - Integumentary Integumentary: no rash - Neurologic Neurologic: CNII-XII intact - Musculoskeletal Musculoskeletal: gait not assessed, strength equal bilaterally - Psychiatric Psychiatric: A&O x's 3, appropriate affect - Labs CBC & Chem 7: 07/21/19 07:38 07/21/19 07:38 Labs: Abnormal Lab Results - Last 24 Hours (Table) 07/20/19 07/20/19 07/20/19 Range/Units 09:55 09:55 10:00 WBC 11.9 H (3.8-10.6) k/uL RBC (3.80-5.40) m/uL Plt Count (150-450) k/uL Neutrophils # 10.3 H (1.3-7.7) k/uL Lymphocytes # 0.7 L (1.0-4.8) k/uL Sodium 136 L (137-145) mmol/L Calcium (8.4-10.2) mg/dL Total Bilirubin 2.3 H (0.2-1.3) mg/dL AST 128 H (14-36) U/L ALT 96 H (4-34) U/L Total Protein (6.3-8.2) g/dL Albumin (3.5-5.0) g/dL Urine Appearance Cloudy H (Clear) Urine Protein Trace H (Negative) Urine Ketones Trace H (Negative) Urine WBC 14 H (0-5) /hpf Urine Bacteria Rare H (None) /hpf Urine Mucus Few H (None) /hpf 07/21/19 07/21/19 Range/Units 07:38 07:38 WBC (3.8-10.6) k/uL RBC 3.56 L (3.80-5.40) m/uL Plt Count 134 L (150-450) k/uL Neutrophils # (1.3-7.7) k/uL Lymphocytes # 0.5 L (1.0-4.8) k/uL Sodium 135 L (137-145) mmol/L Calcium 8.1 L (8.4-10.2) mg/dL Total Bilirubin 1.5 H (0.2-1.3) mg/dL AST 160 H (14-36) U/L ALT 108 H (4-34) U/L Total Protein 5.2 L (6.3-8.2) g/dL Albumin 2.5 L (3.5-5.0) g/dL Urine Appearance (Clear) Urine Protein (Negative) Urine Ketones (Negative) Urine WBC (0-5) /hpf Urine Bacteria (None) /hpf Urine Mucus (None) /hpf Microbiology - Last 24 Hours (Table) 07/20/19 10:00 Urine Culture - Preliminary Urine,Voided Assessment and Plan Plan: 1. Acute hypoxic respiratory failure likely secondary to gram-negative pneumonia or worsening pulmonary fibrosis. Pulmonary embolus ruled out on CTA , history of chronic DVT in the right lower extremity Continue levofloxacin and Zosyn. Infectious disease consulted for recommendation on antibiotics. Pulmonary consult. 2. Generalized weakness with history of Poly-arthritis, bilateral knee with left knee effusion, difficulty in ambulating, . Patient was able to ambulate with the help of 4, without any difficulty on discharge, tramadol for pain control, along with Tylenol. Acetaminophen levels ordered. CK ordered 3. SIRS positive with sepsis likely secondary to pneumonia continue antibiotics. Discontinue IV fluids Infectious disease consulted sputum culture. DuoNeb as needed for shortness of breath 4. Chronic DVT, up to the right popliteal region, known history of prior DVT from 2000, evaluated by Dr. Mg known to be chronic 5. Transaminitis, with total bilirubin that slight elevated, check hepatitis panel, possibly related to statin use, we would discuss with cardiology later if transaminase is over 2.5 times of normal. Ultrasound abdomen as above 6. PTCA and stenting of mid LAD lesion, performed 07/14/2019 Recent cardiac stents placed dual anti-antiplatelet agents continue statins metoprolol and Lipitor. brillinta aspirin. Per recommendations from Dr. CRISTHIAN Mtz, if this is truly an acute DVT, he wants her off brillinta and aspirin, and initiate Plavix with eliquis. Discussed with Dr. CRISTHIAN Mtz, with verbal conversation 07/17/2019 7. Hyperlipidemia on Lipitor 80 mg daily 8. Hypothyroidism on 50 minute micrograms Synthroid daily check TSH 9. History of sarcoid, and interstitial pulmonary fibrosis, 10. Debility with abnormality of gait, social media strategist for possible subacute rehab, anti-inflammatories, PT OT. 11 disposition patient may need 1-2 inpatient nights for stabilization 12 DVT prophylaxis with Lovenox 40 daily Discharge plan: Subacute rehab, PT OT consults. NPT statementImpression and plan of care have been directed as dictated by the signing physician. Hilda Tan nurse practitioner acting as scribe for signing physician.
--- NOTE | 2019-07-21 15:00 | CONS ---
CONSULTATION PULMONARY/CRITICAL CARE CONSULTATION: DATE OF SERVICE: 07/21/2019 This is an 83-year-old female who presented to the emergency room on July 20. She apparently presented with weakness. She herself is not a particularly good historian, so most of the history is obtained from the ER [facility]. Her primary care physician is Dr. Bharath Seals in [place]. She apparently came into the emergency room, brought in by EMS for weakness. She apparently had not been feeling well. She apparently also had a fall. The patient apparently was not able to walk and sat down and was not able to get back up again. For that reason, EMS was called. She was brought into the emergency room. In the emergency room, she was evaluated and the admission diagnosis was that of COPD exacerbation, urinary tract infection, altered mental status, dehydration, nosocomial pneumonia, hypoxia, and hypoxemia. She was seen by Dr. Duque in the emergency room. Again not much more history is obtained from the ER v[facility]. In the H and P done by the hospital service, it mentions that the patient has a history of gastroesophageal reflux disease, hypothyroidism, CAD, diffuse interstitial pulmonary fibrosis, sarcoidosis, and followed at an [facility]. She also apparently has a history of moderate aortic stenosis and unstable angina and recently had a stent placed for coronary artery disease. She apparently was discharged to go home on 07/15/2019. She received dual anti-platelet regimen, statins, beta blockers, and presented to the emergency room complaining of left knee pain on 07/16. She ended up being admitted finally on 07/19 for joint issues and pain with decreased mobility. She does complain of shortness of breath and cough. Her cough is somewhat productive. Looking at her x-rays, it appears that she has diffuse significant interstitial lung disease and CT scan showed significant pulmonary fibrosis. She did see my partner Dr. Felix way back in July 2017. At that time, his impression was that she had interstitial lung disease with chronic pulmonary fibrosis and/or possibly sarcoidosis. I do not believe she ever came back to the office to be evaluated. MEDICATIONS: Her medication list is reviewed. She is apparently on aspirin, levothyroxine, metoprolol, Lipitor, nitroglycerin tablets, and Brilinta. ALLERGIES: Denied. MEDICAL HISTORY: Apparently positive for CAD, GERD, hypothyroidism, status post stent placement, and chronic immobility secondary to an injury obtained many years ago. It apparently involves her right knee. SURGICAL HISTORY: Includes heart catheterization, orthopedic procedures. SOCIAL HISTORY: Negative tobacco. She denies any alcohol use or illicit drug use. FAMILY HISTORY: Apparently negative. Both mother and father lived to an old age. She states that her mother at age 97. She was not aware of any of her parent's health history. REVIEW OF SYSTEMS: Unreliable. CONSTITUTIONAL: Weakness. NEUROLOGIC: Negative. HEENT: Negative., CARDIOVASCULAR: Negative. PULMONARY: Cough, shortness of breath and phlegm production. GI: Negative. : Negative. RHEUMATOLOGIC: Negative. IMMUNOLOGIC: Negative. ENDOCRINOLOGIC: Negative. DERMATOLOGIC: Negative. Vital signs are reviewed, temperature 98.3, heart rate 76, respiratory rate 18, blood pressure 95/56 mean 69, 4 L saturation 97%. Appears in no acute distress. HEENT: Examination is grossly unremarkable. Mucous membranes are moist. No oral lesions. Nasal O2 noted. NECK: Supple, full range of motion. No adenopathy or thyromegaly. Neck veins are flat. CARDIOVASCULAR: Examination reveals regular rhythm and rate. Heart rate 80. S1, S2 normal. No murmur. No S3, S4. LUNGS: Significantly diminished breath sounds throughout. She has bibasilar/bilateral Velcro crackles. She is restricted in her breathing. No rhonchi or wheezes. She clearly has pulmonary fibrosis based on her exam. ABDOMEN: Soft, bowel sounds are heard. EXTREMITIES: Intact. No cyanosis, clubbing, or edema. SKIN: Without rash. NEUROLOGIC: Examination is brief but nonfocal. LABS: Reviewed. White count 6.4, hemoglobin 11.5, hematocrit 34.3, platelet count 134,000. PT, INR and PTT all normal. Sodium 135, potassium 3.8, chloride is 106, CO2 is 22, anion gap is 7, BUN and creatinine were 8 and 0.57. The rest of the labs look pretty good. AST 160, ALT 108, total bilirubin was 1.5, albumin is 2.5. Procalcitonin is 0.16, which is a bit high. Urine is yellow and cloudy. Specific gravity is 1.010, ketones are trace positive, there is 14 WBCs and rare bacteria. Leukocyte esterase and nitrite were negative. Influenza studies were negative. Microbiologic studies including blood, urine, sputum were all negative. The patient's chest x-ray shows a pattern that is consistent with interstitial lung disease/pulmonary fibrosis. The CT of the chest is reviewed. Again, it shows findings that are consistent with interstitial lung disease/pulmonary fibrosis. There is no evidence of pulmonary embolism. A followup chest x-ray again shows findings consistent with pulmonary fibrosis. Medications are reviewed. ASSESSMENT: 1. 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 2. Hypoxemia secondary to pulmonary fibrosis. 3. Lifelong nontobacco use. 4. History of coronary artery disease with recent stent placement. 5. Hypothyroidism. 6. Hyperlipidemia. 7. Gastroesophageal reflux disease. 8. Chronic orthopedic issues. PLAN: The patient has pulmonary fibrosis based on her chest x-ray, her physical examination and CT scan. She apparently saw Dr. Felix in the past in 2018 for this problem. She never did come back to the office for a 6 minute walk distance or PFTs. She should follow up with us post discharge. Given her age, likely nothing more will be done. This is a long-standing process. I know at one point Dr. Felix entertained the possibility of sarcoidosis, but this is more likely a run of the mill interstitial lung disease/pulmonary fibrosis/UIP. Additional recommendations and suggestions are forthcoming. Medications are reviewed. MMODL / IJN: [id number] /
[2019-07-21] MEDS: LEVOFLOXACIN 750 MG TAB PO SCH (15:03)
[2019-07-21] MEDS: IPRATROPIUM-ALBUTEROL 3 ML NEB INHALATION PRN ×2 (16:16→22:15)
[2019-07-21] MEDS: SODIUM CHLORIDE 0.9% 1,000 ML IV SCH (18:32)
[2019-07-21] MEDS: ATORVASTATIN 40 MG TAB PO SCH (21:05)
[2019-07-21] MEDS: ASPIRIN 81 MG PO SCH (21:05)
[2019-07-21] MEDS: MELATONIN 5 MG TABLET PO PRN (23:40)
[2019-07-22] MEDS: LEVOTHYROXINE 50 MCG TAB PO SCH (05:52)
--- NOTE | 2019-07-22 08:26 | PN ---
PROGRESS NOTE DATE OF SERVICE: 07/21/2019 REASON FOR FOLLOWUP: Pneumonia. INTERVAL HISTORY: The patient is currently afebrile. The patient is breathing comfortably. The patient did have a cough and bringing up some sputum and throwing in the tissue. Sputum cultures were requested. Culture not collected. The patient denies having any chest pain. No nausea, no vomiting, no abdominal pain, and no diarrhea. PHYSICAL EXAMINATION: Blood pressure 102/64 with a pulse of 87, temperature 98, he is 92% on 4 L nasal cannula. General description is an elderly female, lying in bed in no distress. RESPIRATORY SYSTEM: Unlabored breathing. Decreased breath sounds in the bases, no wheeze. HEART: S1, S2. Regular rate and rhythm. ABDOMEN: Soft, no tenderness. EXTREMITIES: No edema of the feet. LABS: Hemoglobin is 11.5, white count 6.4, BUN of 8, creatinine 0.57. Blood culture has been negative so far. DIAGNOSTIC IMPRESSION AND PLAN: Patient is in the hospital with hypoxemia. This patient did have elevated white count. Did have a cough and sputum likely component of pneumonia, possible gram-negative. Patient is currently on Zosyn, Levaquin to continue. Will try to obtain a sputum to narrow down antibiotics. Continue supportive care. MMODL / IJN: [id number] /
[2019-07-22 08:30] LABS: Basophils % (A) 0 %; Eosinophils # (A) 0.4 k/uL (0-0.7); Eosinophils % (A) 5 %; HCT 32.7 % (34.0-46.0); HGB 10.9 gm/dL (11.4-16.0); Lymphocytes # (A) 0.6 k/uL (1.0-4.8); Lymphocytes % (A) 8 %; MCH 31.8 pg (25.0-35.0); MCHC 33.5 g/dL (31.0-37.0); MCV 94.9 fL (80.0-100.0); Mean Platelet Volume 7.7; Monocytes # (A) 0.6 k/uL (0-1.0); Monocytes % (A) 8 %; Neutrophils # (A) 5.5 k/uL (1.3-7.7); Neutrophils % (A) 77 %; Platelet Count 146 k/uL (150-450); RBC 3.45 m/uL (3.80-5.40); RDW 12.7 % (11.5-15.5); WBC 7.2 k/uL (3.8-10.6)
[2019-07-22] MEDS: ENOXAPARIN 40 MG/0.4 ML SYRINGE SQ SCH (08:32)
[2019-07-22] MEDS: PANTOPRAZOLE 40 MG TABLET PO SCH (08:32)
[2019-07-22] MEDS: METOPROLOL TARTRATE 25 MG TAB PO SCH (08:32)
[2019-07-22] MEDS: TICAGRELOR 90 MG TAB PO SCH ×2 (08:36→21:25)
[2019-07-22 08:39] LABS: ALT 91 U/L (4-34); AST 120 U/L (14-36); African American GFR (CKD) >90 (>60 ml/min/1.73 sqM); Albumin 2.5 g/dL (3.5-5.0); Alkaline Phosphatase 86 U/L (38-126); Anion Gap 5 mmol/L; Blood Urea Nitrogen 7 mg/dL (7-17); Calcium 8.1 mg/dL (8.4-10.2); Carbon Dioxide 25 mmol/L (22-30); Chloride 100 mmol/L (98-107); Glucose 101 mg/dL (74-99); Non-African American GFR(CKD) 89 (>60 ml/min/1.73 sqM); Potassium 3.5 mmol/L (3.5-5.1); Sodium 130 mmol/L (137-145); Total Bilirubin 1.2 mg/dL (0.2-1.3); Total Protein 5.1 g/dL (6.3-8.2)
[2019-07-22] MEDS ORDERED: BISACODYL 5 MG TABLET.DR PO PRN (08:46)
[2019-07-22] MEDS: IPRATROPIUM-ALBUTEROL 3 ML NEB INHALATION PRN ×3 (08:53→19:41)
--- NOTE | 2019-07-22 11:18 | P.DS ---
Providers Date of admission: 07/20/19 11:34 Expected date of discharge: 07/22/19 Attending physician: Honey Zuñiga MD Consults: 07/20/19 11:34 Consult Physician Routine Consulting Provider: Steve Hastings Consult Reason/Comments: recentStent Do you want consulting provider notified?: Yes 07/20/19 12:22 Consult Physician Routine Consulting Provider: Randell Mcgrath Consult Reason/Comments: HAP Do you want consulting provider notified?: Yes 07/20/19 13:11 Consult Physician Routine Consulting Provider: Cecilio Valladares Consult Reason/Comments: hypoxia, recent hospitalisation, CT Pulmonary fibrosis Do you want consulting provider notified?: Yes Primary care physician: Bharath Seals [facility] Course: This is an 83-year-old patient of Dr. Bharath Seals with history of GERD and hypothyroidism CAD, diffuse interstitial pulmonary fibrosis, sarcoid, follows at the [facility], recently had a drug-eluting stent for unstable angina, in mild to moderate aortic stenosis performed by Dr. Laura Mtz on 07/14/2019, she was discharged to home on 07/15/2019,, cast was performed on the right groin and was without any complications. She was placed on a dual antiplatelet regimen, statins, beta blockers, presenting to the emergency room on 07/16/2019, complaining of left knee pain and inability to ambulate, has difficulty in transferring, despite assistance from her sister. Patient was admitted up until 07/19 where she had x-ray of her right joint that suggested slight effusion but since patient was able to mobilize without any difficulty and no intervention was done. During patient's admission patient was found to have a DVT in the right lower extremity in the popliteal region which on consultation with vascular surgery was found to be chronic, no anticoagulation was recommended by Dr. Díaz. IV heparin was discontinued and no anticoagulation and discharge was done as patient is currently on brillanta and aspirin for the stent placed recently. Patient was discharged on 07/19 and came back on 2019 cough, congestion and increased weakness. Apparently family found the patient on ground in the morning where she was sleeping with a blanket on as patient was too weak to stand by herself, EMS was called and patient was found to have hypoxia on vital assessment. Patient is currently saturating at 96% on 5 L with a tachycardia pulse of 101 afebrile. 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 Chest x-ray suggested extensive pulmonary fibrosis with a concern for right upper lobe and left lung base consolidation concerning for possible pneumonia. Patient initiated on levofloxacin and Zosyn by infectious disease. Based on patient's history of DVT in the right leg, CTA is recommended. CTA suggested markedly in the advanced pulmonary fibrosis with honeycombing at the lung bases also noted is geographic groundglass of his reduced throughout both lungs can fluid and in the posterior right middle lobar lung bases concerning for either multi focal pneumonia or nonspecific interstitial pneumonitis.. Pulmonary consulted Infectious disease and cardiology consulted 07/21: Repeat chest x-ray done this morning reveals correlate for pulmonary fibrosis. Subsegmental areas of atelectasis or pneumonia also noted. Hilar prominence may represent hilar adenopathy. Patient has been seen by cardiology with recommendations for continuing dual antiplatelet therapy. Patient follow- up with Dr. Mtz after discharge. Cardiology is following on an as-needed basis. Abdominal ultrasound showed no acute process. Coarsened hepatic changes are suggestive of fatty infiltration or hepatitis. Repeat lab work reveals white count of 6.4, hemoglobin 11.5, platelet count 134. Creatinine 0.57. Total bilirubin 1.5, AST 160, ALT 108. Pro-calcitonin 0.16. Urine culture has been finalized with skin esequiel, blood culture no growth at 24 hours, sputum culture in progress. Patient has been seen by Dr. Mcgrath with recommendations to continue Zosyn and Levaquin. Consult in place with Dr. Valladares. PT and OT added. Anticipate possible need for subacute rehab. Pulse ox 97% on 4 L nasal cannula, heart rate 53, afebrile, blood pressure 95/56. 07/22: Patient has been afebrile, heart rate 80, blood pressure 116/67, pulse ox 91% on 2 L nasal cannula. Repeat lab work reveals normal white count of 7.2, hemoglobin 10.9, platelet count 146. Sodium 1:30, other electrolytes within normal limits, creatinine 0.52. Total bilirubin 1.2, AST 120, ALT 91, alkaline phosphatase 86. Docusate has recommended Avelox for 7 days after discharge. Case reviewed with Dr. Simms. Symptoms most likely secondary to severe pulmonary fibrosis but pneumonia is within possibility. Discharge plan is to [facility]. Patient will be discharged to [facility] today once all arrangements are completed, and stable condition. Discharge diagnoses: 1. Acute hypoxic respiratory failure likely secondary to severe pulmonary fibrosis, possible gram negative pneumonia not completely excluded. 2. Generalized weakness with history of Poly-arthritis, bilateral knee with left knee effusion, difficulty in ambulating. 3. SIRS positive with sepsis likely secondary to pneumonia continue antibiotics. 4. Chronic DVT, right popliteal region 5. Transaminitis possibly due to fatty liver disease 6. PTCA and stenting of mid LAD lesion, performed 07/14/2019 7. Hyperlipidemia 8. Hypothyroidism 9. History of sarcoid and interstitial pulmonary fibrosis, 10. Debility with abnormality of gait Discharge plan: Subacute rehab at [facility]. Impression and plan of care have been directed as dictated by the signing physician. Hilda Tan nurse practitioner acting as scribe for signing physician. Patient Condition at Discharge: Good Plan - Discharge Summary Discharge Rx Participant: No New Discharge Prescriptions: New Bisacodyl [Dulcolax] 5 mg PO DAILY PRN tablet. PRN Reason: Constipation Ipratropium-Albuterol Nebulize [Duoneb 0.5 mg-3 mg/3 ml Soln] 3 ml INHALATION RT-Q6H PRN ampul.neb PRN Reason: Shortness Of Breath Or Wheezing Melatonin 10 mg PO HS PRN tablet PRN Reason: Insomnia Moxifloxacin HCl [Avelox] 400 mg PO DAILY #7 tablet Continue Aspirin EC [Ecotrin Low Dose] 81 mg PO HS Metoprolol Tartrate 25 mg PO DAILY Levothyroxine Sodium [Synthroid] 50 mcg PO DAILY Ticagrelor [Brilinta] 90 mg PO BID #60 tab Atorvastatin [Lipitor] 80 mg PO HS #30 tab Nitroglycerin Sl Tabs [Nitrostat] 0.4 mg SUBLINGUAL Q5M PRN #100 tab PRN Reason: Chest Pain Discharge Medication List Aspirin EC [Ecotrin Low Dose] 81 mg PO HS 08/24/17 [History] Levothyroxine Sodium [Synthroid] 50 mcg PO DAILY 07/08/19 [History] Metoprolol Tartrate 25 mg PO DAILY 07/08/19 [History] Atorvastatin [Lipitor] 80 mg PO HS #30 tab 07/15/19 [Rx] Nitroglycerin Sl Tabs [Nitrostat] 0.4 mg SUBLINGUAL Q5M PRN #100 tab 07/15/19 [Rx] Ticagrelor [Brilinta] 90 mg PO BID #60 tab 07/15/19 [Rx] Bisacodyl [Dulcolax] 5 mg PO DAILY PRN tablet. 07/22/19 [Rx] Ipratropium-Albuterol Nebulize [Duoneb 0.5 mg-3 mg/3 ml Soln] 3 ml INHALATION RT-Q6H PRN ampul.neb 07/22/19 [Rx] Melatonin 10 mg PO HS PRN tablet 07/22/19 [Rx] Moxifloxacin HCl [Avelox] 400 mg PO DAILY #7 tablet 07/22/19 [Rx] Follow up Appointment(s)/Referral(s): Eva Mtz MD [STAFF PHYSICIAN] - 1 Week [facility], [NON-STAFF] - Bharath Seals MD [Primary Care Provider] - 1 Week (after discharge from [facility]) Discharge Disposition: TRANSFER TO SNF/ECF
[2019-07-22 11:39] VITALS: BMI 25.0
[2019-07-22] MEDS: SODIUM CHLORIDE 0.9% 1,000 ML IV SCH (12:09)
[2019-07-22] MEDS: LEVOFLOXACIN 750 MG TAB PO SCH (12:56)
--- NOTE | 2019-07-22 13:20 | P.PN ---
Subjective Progress Note Date: 07/22/19 Principal diagnosis: Interstitial lung disease, pulmonary fibrosis, hypoxemia, possible tracheobronchitis On 07/22/2019 patient seen in follow-up on medical surgical floor. Remains on oxygen, at 2 L, her pulse ox is 91%, she's been afebrile, vital signs have been stable, breathing is improving, no acute events overnight, pro-calcitonin level was low at 0.16, no leukocytosis, white blood cell count 7.2, hemoglobin is 10.9, platelet count was 146, sodium is 1:30, the rest of electrolytes and renal profile were within normal limits. Influenza screen was negative. Patient has been treated with oral Levaquin, nebulized bronchodilators, she is improving. Objective - Vital Signs Vital signs: Vital Signs Temp 97.8 F 07/22/19 04:45 Pulse 80 07/22/19 09:06 Resp 22 07/22/19 08:00 BP 116/67 07/22/19 04:45 Pulse Ox 91 L 07/22/19 04:45 Intake & Output 07/21/19 07/22/19 07/22/19 18:59 06:59 18:59 Intake Total 800 500 Balance 800 500 Weight 72.575 kg Intake: Oral 800 500 Other: Voiding Method Bedside Commode Bedside Commode Bedside Commode # Voids 4 4 - Exam GENERAL EXAM: Alert, very pleasant, 83-year-old white female, on 2 L of oxygen the pulse ox of 91%, comfortable in no apparent distress. HEAD: Normocephalic/atraumatic. EYES: Normal reaction of pupils, equal size. Conjunctiva pink, sclera white. NOSE: Clear with pink turbinates. THROAT: No erythema or exudates. NECK: No masses, no JVD, no thyroid enlargement, no adenopathy. CHEST: No chest wall deformity. Symmetrical expansion. LUNGS: Equal air entry with dry Velcro-like crackles CVS: Regular rate and rhythm, normal S1 and S2, no gallops, no murmurs, no rubs ABDOMEN: Soft, nontender. No hepatosplenomegaly, normal bowel sounds, no guardi ng or rigidity. EXTREMITIES: No clubbing, no edema, no cyanosis, 2+ pulses and upper and lower extremities. MUSCULOSKELETAL: Muscle strength and tone normal. SPINE: No scoliosis or deformity SKIN: No rashes CENTRAL NERVOUS SYSTEM: Alert and oriented -3. No focal deficits, tone is normal in all 4 extremities. PSYCHIATRIC: Alert and oriented -3. Appropriate affect. Intact judgment and insight. - Labs CBC & Chem 7: 07/22/19 07:54 07/22/19 07:54 Labs: Abnormal Lab Results - Last 24 Hours (Table) 07/22/19 07/22/19 Range/Units 07:54 07:54 RBC 3.45 L (3.80-5.40) m/uL Hgb 10.9 L (11.4-16.0) gm/dL Hct 32.7 L (34.0-46.0) % Plt Count 146 L (150-450) k/uL Lymphocytes # 0.6 L (1.0-4.8) k/uL Sodium 130 L (137-145) mmol/L Glucose 101 H (74-99) mg/dL Calcium 8.1 L (8.4-10.2) mg/dL AST 120 H (14-36) U/L ALT 91 H (4-34) U/L Total Protein 5.1 L (6.3-8.2) g/dL Albumin 2.5 L (3.5-5.0) g/dL Microbiology - Last 24 Hours (Table) 07/20/19 09:55 Blood Culture - Preliminary Blood No Growth after 48 hours 07/20/19 20:30 Gram Stain - Preliminary Sputum Sputum Culture - Preliminary 07/20/19 10:00 Urine Culture - Final Urine,Voided Assessment and Plan Plan: Assessment: #1. Acute hypoxemic respiratory failure related to underlying history of lung fibrosis, and possibility of infectious process/tracheobronchitis is not excluded #2. History of interstitial lung disease/pulmonary fibrosis, presumed UIP #3. Lifelong nontobacco use #4. History of coronary artery disease with recent stent placement #5. Hypothyroidism #6. Hyperlipidemia #7. GERD #8. Chronic orthopedic issues Plan: Vital signs are stable, patient is improving, no fever or chills, no acute issues overnight, breathing is stable, improving, patient is being discharged home today she will need outpatient follow-up with Dr. Felix in the office. Incomplete outpatient course of oral antibiotics. I performed a history & physical examination of the patient and discussed their management with my nurse practitioner, Jessica Hodgson. I reviewed the nurse practitioner's note and agree with the documented findings and plan of care. Lung sounds are positive for dry crackles. The findings and the impression was discussed with the patient. I attest to the documentation by the nurse practitioner. Time with Patient: Less than 30
--- NOTE | 2019-07-22 14:20 | PN ---
PROGRESS NOTE DATE OF SERVICE: 07/22/2019 REASON FOR FOLLOWUP: Possible pneumonia. INTERVAL HISTORY: The patient is currently afebrile. The patient has been breathing more comfortably. The patient continued to have a cough though decreased in intensity, less productive now. No chest pain. No nausea, no vomiting. No abdominal pain. No diarrhea. PHYSICAL EXAMINATION: Blood pressure 115/67 with a pulse of 78, temperature 97.8. She is 91% on 2 L nasal cannula. General description is an elderly female up in the bed in no distress. RESPIRATORY SYSTEM: Unlabored breathing. at the bases. No wheeze. HEART: S1, S2. Regular rate and rhythm. ABDOMEN: Soft, no tenderness. EXTREMITIES: No edema of the feet. LABS: Hemoglobin is 10.9, white count 7.2, BUN of 7, creatinine 0.52. Sputum cultures are currently pending. Blood cultures have been negative. DIAGNOSTIC IMPRESSION AND PLAN: Patient admitted to the hospital with difficulty breathing and cough with some yellow sputum production. Concern for possible tracheobronchitis or early pneumonia. The patient's antibiotic has been adjusted to Levaquin only. Zosyn has been discontinued. Sputum culture will be monitored. If continues to improve, hopefully finish therapy with oral Avelox 400 daily for about a week. Continue with supportive care. MMODL / IJN: [id number] /
[2019-07-22] MEDS: MELATONIN 5 MG TABLET PO PRN (21:25)
[2019-07-22] MEDS: ASPIRIN 81 MG PO SCH (21:25)
[2019-07-22] MEDS: ATORVASTATIN 40 MG TAB PO SCH (21:25)
[2019-07-23] MEDS: IPRATROPIUM-ALBUTEROL 3 ML NEB INHALATION PRN ×2 (02:01→07:17)
[2019-07-23 05:08] VITALS: BP 101/55; RESP 18; TEMP 98.2
[2019-07-23] MEDS: LEVOTHYROXINE 50 MCG TAB PO SCH (05:53)
[2019-07-23 07:28] VITALS: PULSE 86
[2019-07-23 08:29] LABS: Basophils % (A) 0 %; Eosinophils # (A) 0.3 k/uL (0-0.7); Eosinophils % (A) 5 %; HCT 32.6 % (34.0-46.0); Lymphocytes # (A) 0.8 k/uL (1.0-4.8); Lymphocytes % (A) 12 %; MCH 32.2 pg (25.0-35.0); MCHC 33.7 g/dL (31.0-37.0); MCV 95.4 fL (80.0-100.0); Mean Platelet Volume 7.4; Monocytes # (A) 0.6 k/uL (0-1.0); Monocytes % (A) 10 %; Neutrophils # (A) 4.4 k/uL (1.3-7.7); Neutrophils % (A) 70 %; Platelet Count 163 k/uL (150-450); RBC 3.42 m/uL (3.80-5.40); RDW 12.7 % (11.5-15.5); WBC 6.2 k/uL (3.8-10.6)
[2019-07-23] MEDS: METOPROLOL TARTRATE 25 MG TAB PO SCH (08:37)
[2019-07-23] MEDS: TICAGRELOR 90 MG TAB PO SCH (08:38)
[2019-07-23] MEDS: ENOXAPARIN 40 MG/0.4 ML SYRINGE SQ SCH (08:38)
[2019-07-23] MEDS: PANTOPRAZOLE 40 MG TABLET PO SCH (08:38)
[2019-07-23 08:52] LABS: ALT 83 U/L (4-34); AST 111 U/L (14-36); African American GFR (CKD) >90 (>60 ml/min/1.73 sqM); Albumin 2.5 g/dL (3.5-5.0); Alkaline Phosphatase 81 U/L (38-126); Anion Gap 8 mmol/L; Blood Urea Nitrogen 9 mg/dL (7-17); Calcium 8.3 mg/dL (8.4-10.2); Carbon Dioxide 26 mmol/L (22-30); Chloride 101 mmol/L (98-107); Glucose 98 mg/dL (74-99); Non-African American GFR(CKD) 87 (>60 ml/min/1.73 sqM); Potassium 3.5 mmol/L (3.5-5.1); Sodium 135 mmol/L (137-145); Total Bilirubin 1.2 mg/dL (0.2-1.3); Total Protein 5.3 g/dL (6.3-8.2)
--- NOTE | 2019-07-23 12:34 | PN ---
PROGRESS NOTE DATE OF SERVICE: 07/23/2019 REASON FOR FOLLOWUP: Pneumonia. INTERVAL HISTORY: The patient is currently afebrile. Patient is breathing more comfortably. She did have the cough though decreased in intensity. Less productive. No nausea, no vomiting. No abdominal pain and no diarrhea. PHYSICAL EXAMINATION: Blood pressure is 101/55 with a pulse of 80, temperature 98.2% with 4 L nasal cannula. General description is an elderly female, lying in bed in no distress. RESPIRATORY SYSTEM: Unlabored breathing, clear to auscultation anteriorly. HEART: S1, S2. Regular rate and rhythm. ABDOMEN: Soft, no tenderness. EXTREMITIES: No edema of the feet. LABS: Hemoglobin is 11, white count of 6.2. BUN of 9, creatinine 0.56. Sputum has been usual respiratory esequiel. DIAGNOSTIC IMPRESSION AND PLAN: Patient admitted to hospital with increasing shortness of breath and cough with concern for pneumonia, sputum has been usual respiratory esequiel. Patient is currently covered with Levaquin and continue for about 5 days to finish a course of therapy. Continue supportive care. MMODL / IJN: [id number] /
== END 2019-07-23 10:32 | DRG 871 ==
LOC: EC 09:32 → 6NMEDSUR 11:34
PROVIDERS: ADMIT Internal Medicine; ATTEND Internal Medicine
DX: A41.50 Gram-negative sepsis, unspecified (principal); J15.6 Pneumonia due to other Gram-negative bacteria; J96.01 Acute respiratory failure with hypoxia; J44.0 Chronic obstructive pulmonary disease with (acute) lower respiratory infection; J44.1 Chronic obstructive pulmonary disease with (acute) exacerbation; I82.531 Chronic embolism and thrombosis of right popliteal vein; N39.0 Urinary tract infection, site not specified; K76.0 Fatty (change of) liver, not elsewhere classified; J84.10 Pulmonary fibrosis, unspecified; E86.0 Dehydration; Y95 Nosocomial condition; D86.0 Sarcoidosis of lung; E78.5 Hyperlipidemia, unspecified; E03.9 Hypothyroidism, unspecified; I10 Essential (primary) hypertension; I35.0 Nonrheumatic aortic (valve) stenosis; K21.9 Gastro-esophageal reflux disease without esophagitis; I25.10 Atherosclerotic heart disease of native coronary artery without angina pectoris; M25.462 Effusion, left knee; R26.9 Unspecified abnormalities of gait and mobility; R26.2 Difficulty in walking, not elsewhere classified; M17.0 Bilateral primary osteoarthritis of knee; Z79.82 Long term (current) use of aspirin; Z79.890 Hormone replacement therapy; Z79.02 Long term (current) use of antithrombotics/antiplatelets; Z79.899 Other long term (current) drug therapy; Z95.5 Presence of coronary angioplasty implant and graft; W19.XXXA Unspecified fall, initial encounter; Y92.009 Unspecified place in unspecified non-institutional (private) residence as the place of occurrence of the external cause
CPT/HCPCS: 36415; 70450; 71046; 71275; 72125; 72170; 76705; 80053; 80329; 81001; 82550; 82553; 83605; 83735; 83880; 84100; 84145; 84484; 85025; 85610; 85730; 87040; 87070; 87086; 87205; 87502; 93005; 94640; 96360; 96361; 99285

== ENCOUNTER 2021-06-09 15:05 | Emergency (ER) | payer MEDICARE, OTHER ==
[2021-06-09] MEDS ORDERED: ACETAMINOPHEN TAB 500 MG TAB PO STA (18:31)
--- NOTE | 2021-06-09 19:16 | CT ---
EXAMINATION TYPE: CT brain richard rodrigez DATE OF EXAM: 06/09/2021 COMPARISON: 07/20/2019 HISTORY: fall CT DLP: 1284.4 mGycm Automated exposure control for dose reduction was used. There is cerebral cortical atrophy. There is no mass effect nor midline shift. There is no sign of in tracranial hemorrhage. There is some white matter hypodensity left posterior parietal occipital lobe consistent with old infarct. The calvarium is intact. Skull base is intact. There is normal aeration of the mastoid sinuses. The cervical vertebra have normal alignment. Disc spaces are fairly normal. There is no compression f racture. Posterior elements are intact. Prevertebral soft tissues appear normal. IMPRESSION: Negative CT scan of the cervical spine. No change. Cerebral atrophy. 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 No acute intracranial abnormali ty.
--- NOTE | 2021-06-09 19:24 | CT ---
EXAMINATION TYPE: CT thor lumbar spine wo con DATE OF EXAM: 06/09/2021 COMPARISON: None HISTORY: back pain following fall CT DLP: 1221.6 mGycm Automated exposure control for dose reduction was used. Images obtained from the level of T1-S1 vertebra without contrast. Thoracic vertebra have normal alignment. Lumbar vertebra have normal alignment. There is a very minim al L4-5 subluxation of a few millimeters. There is no spondylolysis. There is T12 depression of the s uperior endplate 15%. This is probably an old fracture. There is vacuum disc at T11-12. There is no t horacic or lumbar paraspinal mass. I see no focal bone destruction. There is no significant disc spac e narrowing in the thoracic and lumbar spine. There is extensive infiltrates in the posterior lung fi elds. IMPRESSION: Mild compression fracture of T12 not changed compared to chest CT scan of 07/20/2019. No acute fracture seen. There is a degenerative first-degree mild L4-5 spondylolisthesis.
--- NOTE | 2021-06-09 19:29 | XR ---
EXAMINATION TYPE: XR Hip LT and AP Pelvis DATE OF EXAM: 06/09/2021 COMPARISON: July 20, 2019 HISTORY: Pain TECHNIQUE: 3 views FINDINGS: The pelvic ring is intact. Proximal femurs and hip joints are intact. There is acetabular s purring. The proximal left femur shows no evidence for fracture. IMPRESSION: No acute abnormality of the pelvis and left hip. No change.
--- NOTE | 2021-06-09 19:34 | XR ---
EXAMINATION TYPE: XR humerus LT DATE OF EXAM: 06/09/2021 COMPARISON: 08/15/2013 HISTORY: Pain. Fall. TECHNIQUE: 2 views FINDINGS: I see no fracture. There is significant widening of the AC joint space. The elbow joint jose armando ears anatomic. IMPRESSION: No fracture seen. Significant separation of the AC joint which appears worse than last ex am.
--- NOTE | 2021-06-09 19:35 | XR ---
EXAMINATION TYPE: XR shoulder complete LT DATE OF EXAM: 06/09/2021 COMPARISON: NONE HISTORY: Pain TECHNIQUE: 3 views FINDINGS: There is narrowing of the glenohumeral joint space with spur formation. I see no fracture. There is widening of the AC joint space that measures 2.5 cm. The scapula is intact. 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 Separation of the AC joint space. No acute fracture seen.
--- NOTE | 2021-06-09 19:36 | XR ---
EXAMINATION TYPE: XR femur LT DATE OF EXAM: 06/09/2021 COMPARISON: NONE HISTORY: Pain TECHNIQUE: 4 views FINDINGS: Hip joint is intact. The knee joint appears intact. I see no fracture nor dislocation. Ther e is slight narrowing of the medial joint space of the knee. IMPRESSION: Minor degenerative changes. No fracture seen of the left femur.
--- NOTE | 2021-06-09 19:38 | XR ---
EXAMINATION TYPE: XR chest 2V DATE OF EXAM: 06/09/2021 COMPARISON: July 21, 2019 HISTORY: Pain TECHNIQUE: 2 views FINDINGS: There is coarse interstitial infiltrates throughout both lungs. Heart size is normal. There is no pleural effusion. Bony thorax is intact. IMPRESSION: Extensive pulmonary interstitial infiltrates or the same or slightly improved compared to old exam and consistent with pulmonary fibrosis. No pleural fluid or cardiomegaly seen to suggest an y heart failure.
[2021-06-09 19:58] VITALS: BP 141/68; PULSE 59; RESP 20; TEMP 98
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
== END 2021-06-09 20:30 | disposition home or self-care (01) ==
LOC: EC 15:05
DX: S43.102A Unspecified dislocation of left acromioclavicular joint, initial encounter (principal); I25.10 Atherosclerotic heart disease of native coronary artery without angina pectoris; K21.9 Gastro-esophageal reflux disease without esophagitis; E07.9 Disorder of thyroid, unspecified; Z79.02 Long term (current) use of antithrombotics/antiplatelets; W01.0XXA Fall on same level from slipping, tripping and stumbling without subsequent striking against object, initial encounter
CPT/HCPCS: 70450; 71046; 72125; 72128; 72131; 73502; 99284